=== PATIENT | female | born 1940 | race Caucasian/White ===

== ENCOUNTER → 2018-12-09 | Outpatient (CLI) | payer MEDICARE, BC, OTHER ==
--- NOTE | 2018-12-10 11:25 | RAD ---
Examination: PET/CT skull base to proximal thighs History: Lung mass Comparison/Correlation: None Findings: PET CT exam was performed from skull base to the proximal thighs. 14.24 mCi F-18 FDG was administered intravenously. Serum blood glucose at the time of this exam was 116 mg/dL. Misregistration is noted at the level of the head and maxillofacial structures. Respiratory motion limits evaluation of the lung shea. Uptake involving a left parotid gland lymph node or nodule measuring 0.8 cm is present with SUV max of 3.6. This finding is present medially within the left parotid gland. Within the right parotid gland, there is a lymph node or nodule with SUV max of 3.3. Within the left upper jugular chain, there are lymph nodes which are not enlarged. Mild uptake of radiotracer with SUV max of 3.3 is noted especially on the left at the level 2A region. At the posterior right midthoracic level, there is a focus of uptake with SUV max of 2.5 this corresponds to a curvilinear region of scarring. This curvilinear density is evident as compared to CT chest without contrast 11/04/2018. Nodule involving the lateral left midlung region is similar to previous exam. No abnormal uptake identified although it is probably too small for characterization with measurement of 0.5 cm. Emphysematous involvement of the lung shae noted. Linear scarring or atelectasis at the lung bases noted. Uptake of radiotracer involving the abdomen and pelvis is unremarkable. Liver, spleen, and adrenal glands are unremarkable. Low-attenuation lesion which is too small to characterize involving the left hepatic lobe on axial image 147 probably represents a cyst or other benign process. No abnormal uptake at the site. Multiple renal cysts including some with hemorrhagic component noted. No abnormal uptake of radiotracer. No enlarged abdominal or pelvic lymph nodes. Cholecystectomy noted. Diverticulosis present. Approximately grade 1 anterolisthesis of L5 in relation S1 noted. Compression deformity of the T7 vertebra is present and of indeterminate age. No associated mass or abnormal tracer uptake. Impression: Mild uptake corresponding to the right posterior midthoracic pulmonary groundglass infiltrate which is less evident since the prior CT exam. Mild uptake of radiotracer involving the parotid gland lymph nodes or nodules as well as left level 2A lymph nodes. This is of indeterminate significance. Correlate for underlying inflammatory process. Consider annual follow-up CT of the neck with contrast for more complete resolution to assess interval stability.
== END | disposition home or self-care (01) ==
LOC: PETSC 09:27
PROVIDERS: ATTEND Internal Medicine Critical Care Medicine
DX: R91.8 Other nonspecific abnormal finding of lung field (principal); K57.30 Diverticulosis of large intestine without perforation or abscess without bleeding; J43.9 Emphysema, unspecified; Z90.49 Acquired absence of other specified parts of digestive tract
CPT/HCPCS: 78815; A9552

== ENCOUNTER → 2019-10-28 | Outpatient (CLI) | payer MEDICARE, BC, OTHER ==
--- NOTE | 2019-10-31 18:48 | RAD ---
EXAM: PET W CT SKULL TO MIDTHIGH EXAM DATE: 10/28/2019 INDICATION: Lung mass. Initial staging. RADIOPHARMACEUTICAL: 15.6 mCi of F-18 Fluorodeoxyglucose (FDG) I.V. via the right antecubital fossa. TECHNIQUE: Patient weight: 200 pounds. Following at least four-hour fasting, the patient's blood glucose was 96 mg/dl. Approximately 1 hour after administration of FDG, overlapping emission scanning was performed from the orbital meatal line through the pelvis. A low-dose CT was performed for attenuation correction purposes and anatomic localization. Fused images of PET and CT were reviewed. Any standardized uptake values (SUV) reported are maximum values within a volume region of interest, expressed in gm/ml. COMPARISON: Chest CT without IV contrast of 03/14/2019 and 10/19/2019 FINDINGS: PET: The nodule in the right lower lobe demonstrates abnormal FDG activity to a max SUV of 9.5. There is high background FDG activity including in the mediastinum and right hilum asymmetrically, favored artifactual. For reference, the right hilum shows a max SUV of 3.5. Activity also evident in the skeletal muscles with the patient's upper back CT: Head and neck shows no cervical adenopathy or dominant mass. No intracranial lesions identified. Lungs show centrilobular emphysema. Spiculated right lower lobe pulmonary nodule measures 2.5 cm. There are a few additional subcentimeter satellite nodules surrounding it, at least 3. No mediastinal or hilar hilar adenopathy shown on noncontrast CT. No pleural effusion. Abdomen and pelvis shows multiple hypodense hepatic lesions, incompletely characterized on noncontrast CT but not hypermetabolic, largest measuring 2.2 cm in hepatic segment 8. There are post cholecystectomy surgical changes and multiple bilateral renal cortical cysts, some hemorrhagic. None are hypermetabolic. Bones show chronic T7 compression fracture and generalized osteopenia. No aggressive appearing osseous lesions. IMPRESSION: Right lower lobe 2.5 cm spiculated mass shows abnormal FDG uptake to max SUV of 9.54 and is highly suggestive of a primary lung malignancy. No convincing evidence of advanced local regional spread or distant metastases the high background is evident. Correlation with a contrast enhanced chest CT may be of benefit. Electronically signed by: Clarissa Gutierres MD (10/31/2019 6:45 PM) [id number]
== END | disposition home or self-care (01) ==
LOC: PETSC 09:59
PROVIDERS: ATTEND Internal Medicine Critical Care Medicine
DX: J43.2 Centrilobular emphysema (principal); C34.90 Malignant neoplasm of unspecified part of unspecified bronchus or lung; R91.8 Other nonspecific abnormal finding of lung field; N28.1 Cyst of kidney, acquired; M84.48XA Pathological fracture, other site, initial encounter for fracture; M85.88 Other specified disorders of bone density and structure, other site; Z90.49 Acquired absence of other specified parts of digestive tract
CPT/HCPCS: 78815; A9552

== ENCOUNTER 2020-09-05 18:00 | Inpatient (IN) | payer MEDICARE, BC, OTHER ==
[~2020-09-05] VITALS: Ht 152.4 cm; Wt 81.6 kg
[2020-09-05 19:00] VITALS: BP 120/58
[2020-09-05] MEDS ORDERED: LEVO125T PO (19:11)
[2020-09-05] MEDS ORDERED: ATOR20TA58 PO (19:11)
[2020-09-05] MEDS ORDERED: CARV6.253 PO (19:11)
[2020-09-05] MEDS ORDERED: SPIR25TA5 PO (19:11)
[2020-09-05] MEDS ORDERED: QUET50TA PO (19:11)
[2020-09-05] MEDS ORDERED: BUPR150T11 PO (19:11)
[2020-09-05] MEDS ORDERED: ALPR1TAB6 PO (19:11)
[2020-09-05] MEDS ORDERED: OMEG1CAP66 PO (20:59)
[2020-09-05] MEDS ORDERED: IRBE300T23 PO (20:59)
[2020-09-05] MEDS ORDERED: MULT-245 PO (20:59)
[2020-09-05] MEDS ORDERED: RIVA15TA PO (20:59)
[2020-09-05] MEDS ORDERED: PSYL0.5215 PO (20:59)
[2020-09-05] MEDS ORDERED: ALEN70TA71 PO (20:59)
[2020-09-05] MEDS ORDERED: ESTR42.53 VG (20:59)
[2020-09-05] MEDS ORDERED: NITR50CA11 PO (20:59)
[2020-09-05] MEDS ORDERED: CALC-337 PO (20:59)
[2020-09-05] MEDS ORDERED: ALPRAZolam 1 MG TABLET PO SCH (21:00)
[2020-09-05] MEDS: LACTOBACILLUS RHAMNOSUS GG 1 CAPSULE. PO SCH (22:25)
[2020-09-05] MEDS: ATORVASTATIN CALCIUM 20 MG TABLET PO SCH (22:26)
[2020-09-05] MEDS: QUEtiapine 25 MG TABLET. PO SCH (22:26)
[2020-09-05 23:00] VITALS: BP 112/62
[2020-09-05] MEDS: DEXAMETHASONE SOD PHOS 4 MG/ML VIAL IVP SCH (23:40)
[2020-09-06] MEDS: ANTI-COAG MONITOR BY PHARMACY. MC PRN (00:25)
[2020-09-06] MEDS: ACETAMINOPHEN 325 MG TABLET. PO PRN ×2 (00:47→17:47)
[2020-09-06 03:00] VITALS: BP 134/73
[2020-09-06] MEDS: LEVOTHYROXINE 125 MCG TABLET PO SCH (06:09)
[2020-09-06] MEDS: DEXAMETHASONE SOD PHOS 4 MG/ML VIAL IVP SCH ×3 (06:09→17:46)
[2020-09-06 07:00] VITALS: BP 124/74
--- NOTE | 2020-09-06 08:14 | PDOC1 ---
History and Physical Date of Admission Date of Admission DATE: 09/06/20 TIME: 08:13 Identification/Chief Complaint Chief Complaint COVID 19 pneumonia Source Source: Chart review, Patient History of Present Illness History of Present Illness Ms Hamm is a 79-year-old female w/ PMHx Anxiety, Arthritis, CHF, COPD, High Cholesterol, Hypertension, rheumatic fever transferred from [place] for worsening O2 status under treatment for COVID 19. She initially presented for weakness, fatigue, shortness of breath, and decreased p.o. intake. She has been having diarrhea for about 6 weeks and was hospitalized for the same prior. Patient was also hypoxic on room air satting 84%. Patient has a history of COPD and uses oxygen at night but not during the day. She was started on steroids by her primary care physician and had 1 dose prior to admission. Patient states she has had a productive cough denies any nausea and vomiting. She was exposed to Covid by her daughter who came over for [place]. Her daughter and had a test performed prior to the holiday, got the positive results after being at her mother's for the holiday. She denies any loss of taste or smell but says she lives alone and because she has not felt well is lacking motivation to get out and make food. States there is no blood in her stools no tarry looking stools. Chest radiograph with bilateral pneumonia For her diarrhea [place]' she had a C. difficile and Salmonella Shigella test negative negative for parasites. Her test for COVID-19 on 123 came back positive and she was initiated on remdesivir on 09/04/2020. She also had an ABG at that time and while on a 40% FiO2 pH 74 PaCO2 42 PaO2 71. Repeat chest x-ray on 09/04/2020 showed improvement in her right basilar infiltrate but left inf iltrate as well and emphysema. Labs prior to discharge to [facility] WBC 1.3, Hb 8.6, platelets 231, NA 134, K4.5, BUN 19, CR 1.1, glucose 126, calcium 6.5. EKG was Sinus rhythm, wide complex with left axis deviation, intraventricular block. No ST elevation or depression. Past Medical History Cardiovascular: HTN, Hyperlipidemia Pulmonary: COPD Past Surgical History Past Surgical History: Other (Deviated septum) Family History Family History: High Cholestrol, Hypertension Social History Smoke: No ALCOHOL: none Drugs: None Current Medications Current Medications Current Medications Alprazolam (Xanax) 1 mg TID PO Last administered on 09/05/20at 22:26; Start 09/05/20 at 21:00 Atorvastatin Calcium (Lipitor) 20 mg QHS PO Last administered on 09/05/20at 22:26; Start 09/05/20 at 21:00 Bupropion HCl (Wellbutrin Sr) 300 mg DAILY PO ; Start 09/06/20 at 09:00 Carvedilol (Coreg) 3.125 mg BIDWMEALS PO ; Start 09/06/20 at 08:00 Estradiol (Estrace) 1 angelica QMTH VG ; Start 09/06/20 at 16:00 Levothyroxine Sodium (Synthroid) 125 mcg DAILY06 PO Last administered on 09/06/20at 06:09; Start 09/06/20 at 06:00 Rivaroxaban (Xarelto) 15 mg DAILY PO ; Start 09/06/20 at 09:00 Spironolactone (Aldactone) 12.5 mg DAILY PO ; Start 09/06/20 at 09:00 Non-Formulary Medication (Alendronate Sodium ) 1 tab WEEKLY PO ; Start 09/12/20 at 09:00; Status UNV Calcium/Vitamin D (Oscal D 500mg/ 200uts) 1 tab BIDWMEALS PO ; Start 09/06/20 at 08:00 Losartan Potassium (Cozaar) 100 mg DAILY PO ; Start 09/06/20 at 09:00 Multivitamins (Thera M Plus) 1 tab DAILY PO ; Start 09/06/20 at 09:00 Nitrofurantoin Macrocrystals (Macrobid) 100 mg SuTh PO ; Start 09/06/20 at 09:00 Fish Oil (Fish Oil) 1,000 mg DAILY PO ; Start 09/06/20 at 09:00 Psyllium Hydrophilic Mucilloid (Metamucil Fiber Packet) 1 pkt DAILY PO ; Start 09/06/20 at 09:00 Quetiapine Fumarate (SEROquel) 50 mg QHS PO Last administered on 09/05/20at 22:26; Start 09/05/20 at 21:00 Dexamethasone Sodium Phosphate (Decadron) 4 mg Q6HRS IVP Last administered on 09/06/20at 06:09; Start 09/06/20 at 00:00 Albuterol/ Ipratropium (Combivent Respimat 20-100 Mcg) 1 puff RTQID INH ; Start 09/06/20 at 08:00 Lactobacillus Rhamnosus (Culturelle) 1 cap BID PO Last administered on 09/05/20at 22:25; Start 09/05/20 at 21:30 Loperamide HCl (Imodium) 2 mg PRN Q15MIN PRN PO DIARRHEA; Start 09/05/20 at 21:15 Guaifenesin (Mucinex) 600 mg BID PO Last administered on 09/05/20at 22:26; Start 09/05/20 at 21:30 Info (Anti-Coagulation Monitoring By Pharmacy) 1 each PRN DAILY PRN MC SEE COMMENTS Last administered on 09/06/20at 00:25; Start 09/05/20 at 21:30 Azithromycin 500 mg/Sodium Chloride 250 ml @ 250 mls/hr Q24H IV ; Start 09/06/20 at 13:00 Enoxaparin Sodium (Lovenox 40mg Syringe) 40 mg Q24H SQ ; Start 09/06/20 at 12:00; Status UNV Ceftriaxone Sodium (Rocephin) 1 gm Q24H IVP ; Start 09/06/20 at 12:00 Remdesivir 100 mg/ Sodium Chloride 230 ml @ 460 mls/hr Q24H IV ; Start 09/06/20 at 09:00; Stop 09/08/20 at 09:29 Acetaminophen (Tylenol) 650 mg PRN Q6HRS PRN PO MILD PAIN / TEMP > 100.3'F Last administered on 09/06/20at 00:47; Start 09/06/20 at 00:45 Active Scripts Active Reported Xarelto (Rivaroxaban) 15 Mg Tablet 1 Tab PO DAILY 30 Days Metamucil (Psyllium Husk) 0.52 Gm Capsule 1 Cap PO DAILY [address] 1,000 Mg Softgel ([place]-3S/Dha/Epa/Fish Oil) 1 Each Capsule.dr 1 Cap PO DAILY 30 Days Macrodantin (Nitrofurantoin Macrocrystal) 50 Mg Capsule 1 Cap PO TWICE WEEKLY 30 Days Multi Vitamin Daily (Multivitamin) 1 Each Tablet 1 Tab PO DAILY 30 Days Irbesartan 300 Mg Tablet 300 Mg PO DAILY Estrace (Estradiol) 42.5 Gm Cream.appl 1 Gm VG TWICE WEEKLY Mohan-Citrate Plus Vitamin D Tab (Calcium Citrate/Vitamin D2) 1 Each Tablet 1 Tab PO BID 5 Days Alendronate Sodium 70 Mg Tablet 1 Tab PO WEEKLY Synthroid (Levothyroxine Sodium) 125 Mcg Tablet 125 Mcg PO DAILYAC Quetiapine Fumarate 50 Mg Tablet 50 Mg PO QHS Spironolactone 25 Mg Tablet 12.5 Mg PO DAILY Bupropion Hcl Sr (Bupropion Hcl) 150 Mg Tablet.er 300 Mg PO DAILY Alprazolam 1 Mg Tablet 1 Mg PO TID Carvedilol 6.25 Mg Tablet 3.125 Mg PO BIDWMEALS Atorvastatin Calcium 20 Mg Tablet 20 Mg PO QHS Allergies Allergies: Coded Allergies: amoxicillin (Verified Allergy, Intermediate, 09/05/20) clavulanic acid (Verified Allergy, Intermediate, 09/05/20) fenofibrate (Verified Allergy, Intermediate, 09/05/20) morphine (Verified Allergy, Intermediate, 09/05/20) simvastatin (Verified Allergy, Intermediate, 09/05/20) sulfamethoxazole (Verified Allergy, Intermediate, 09/05/20) trimethoprim (Verified Allergy, Intermediate, 09/05/20) ROS General: YES: Fatigue, Malaise, Appetite; No: Chills, Night Sweats, Other PSYCHOLOGICAL ROS: No: Anxiety, Behavioral Disorder, Concentration difficultie, Decreased libido, Depression, Disorientation, Hallucinations, Hostility, Irritablity, Memory difficulties, Mood Swings, Obsessive thoughts, Physical abuse, Sexual abuse, Sleep disturbances, Suicidal ideation, Other Eyes: No Blurry vision, No Decreased vision, No Double vision, No Dry eyes, No Excessive tearing, No Eye Pain, No Itchy Eyes, No Loss of vision, No P hotophobia, No Scotomata, No Uses contacts, No Uses glasses, No Other HEENT: No: Heacaches, Visual Changes, Hearing change, Nasal congestion, Nasal discharge, Oral lesions, Sinus pain, Sore Throat, Epistaxis, Sneezing, Snoring, Tinnitus, Vertigo, Vocal changes, Other ALLERGY AND IMMUNOLOGY: No: Hives, Insect Bite Sensitivity, Itchy/Watery Eyes, Nasal Congestion, Post Nasal Drip, Seasonal Allergies, Other Hematological and Lymphatic: No: Bleeding Problems, Blood Clots, Blood Transfusions, Brusing, Night Sweats, Pallor, Swollen Lymph Nodes, Other ENDOCRINE: No: Breast Changes, Galactorrhea, Hair Pattern Changes, Hot Flashes, Malaise/lethargy, Mood Swings, Palpitations, Polydipsia/polyuria, Skin Changes, Temperature Intolerance, Unexpected Weight Changes, Other Breast: No New/Changing Breast Lumps, No Nipple changes, No Nipple discharge, No Other Respiratory: YES: Cough, Shortness of breath, SOB with excertion; No: Hemoptysis, Orthopnea, Pleuritic Pain, Sputum Changes, Stridor, Tachypnea, Wheezing, Other Cardiovascular: No Chest Pain, No Palpitations, No Orthopnea, No Paroxysmal Noc. Dyspnea, No Edema, No Lt Headedness, No Other Gastrointestinal: No Nausea, No Vomiting, No Abdominal Pain, No Diarrhea, No Constipation, No Melena, No Hematochezia, No Other Genitourinary: No Dysuria, No Frequency, No Incontinence, No Hematuria, No Retention, No Discharge, No Urgency, No Pain, No Flank Pain, No Other, No , No , No , No , No , No , No Musculoskeletal: No Gait Disturbance, No Joint Pain, No Joint Stiffness, No Joint Swelling, No Muscle Pain, No Muscular Weakness, No Pain In:, No Swelling In:, No Other Neurological: No Behavorial Changes, No Bowel/Bladder ControlChng, No Confusion, No Dizziness, No Gait Disturbance, No Headaches, No Impaired Coord/balance, No Memory Loss, No Numbness/Tingling, No Seizures, No Speech Problems, No Tremors, No Visual Changes, No Weakness, No Other Skin: No Dry Skin, No Eczema, No Hair Changes, No Lumps, No Mole Changes, No Mottling, No Nail Changes, No Pruritus, No Rash, No Skin Lesion Changes, No Other, No Acne Physical Exam General: Alert, Oriented X3, Cooperative, moderate distress HEENT: Atraumatic, PERRLA, EOMI, Mucous membr. moist/pink Lungs: Other (Bilateral rhonchi) Heart: S1S2, RRR, no thrills, no rubs, no gallops, no murmurs Abdomen: Normal bowel sounds, Soft, No tenderness, No hepatosplenomegaly, No masses Rectal Exam: not examined Extremities: No clubbing, No cyanosis, No edema, Normal pulses, No tenderness/swelling Skin: No rashes, No breakdown, No significant lesion Neuro: Normal gait, Normal speech, Strength at 5/5 X4 ext, Normal tone, Sensation intact, Cranial nerves 3-12 NL, Reflexes 2+ Psych/Mental Status: Mental status NL, Mood NL Vitals Vitals Vital Signs Date Time Temp Pulse Resp B/P (MAP) Pulse Ox O2 Delivery O2 Flow Rate FiO2 09/06/20 07:00 96.9 97 18 124/74 (91) 90 Nasal Cannula 10.0 96.9 Images Images Reviewed from [place] in HPI VTE Prophylaxis Ordered VTE Prophylaxis Devices: Yes VTE Pharmacological Prophylaxi: Yes Assessment/Plan Assessment/Plan A/P: Acute hypoxic respiratory failure - due to COVID 19 with secondary bacterial pneumonia as well. Cont antibiotics, steroids, wean O2 as tolerated COVID 19 with pneumonia -continue steroids and remdesivir. Acute hyponatremia - resolving Pneumonia - likely gram negative with structural lung disease. Will cont antibiotics Diarrhea - likely COVID related. infectious w/u negative Sepsis - from COVID 19, will monitor COPD - moderate-severe. Will cont inhalers MDI with steroids, wean O2 as tolerated. FEN - General diet PPX - lovenox DNR/DNI Dispo - inpatient Justifications for Admission Other Justification MARLENE PARADA MD Sep 06, 2020 08:14
[2020-09-06] MEDS: buPROPion SR 150 MG TABLET.SA PO SCH (09:02)
[2020-09-06] MEDS: CALCIUM CARB/VIT D3 500/200 TABLET. PO SCH ×2 (09:02→17:45)
[2020-09-06] MEDS: OMEGA-3 FATTY ACIDS/FISH OIL 1,000 MG CAPSULE. PO SCH (09:02)
[2020-09-06] MEDS: CARVEDILOL 3.125 MG TABLET. PO SCH ×2 (09:02→17:45)
[2020-09-06] MEDS: MULTIVITAMIN with MINERAL TABLET. PO SCH (09:02)
[2020-09-06] MEDS: RIVAROXABAN 15 MG TABLET. PO SCH (09:02)
[2020-09-06] MEDS: NITROFURANTOIN MONOHYD/M-CRYST 100 MG CAPSULE. PO SCH (09:02)
[2020-09-06] MEDS: LOSARTAN POTASSIUM 50 MG TABLET. PO SCH (09:03)
[2020-09-06] MEDS: LACTOBACILLUS RHAMNOSUS GG 1 CAPSULE. PO SCH ×2 (09:03→21:25)
[2020-09-06] MEDS: PSYLLIUM HUSK (SUGAR FREE) 1 PKT PACKET PO SCH (09:04)
[2020-09-06] MEDS: IPRATROPIUM/ALBUTEROL 20/100mcg/INH INHALER. INH SCH ×4 (09:04→20:00)
[2020-09-06] MEDS: SPIRONOLACTONE 25 MG TABLET PO SCH (09:04)
[2020-09-06] MEDS: REMDESIVIR 100mg in NORMAL SALINE 250ML X 4 DAYS IV SCH (09:05)
[2020-09-06] MEDS: LOPERAMIDE 2 MG CAPSULE PO PRN ×3 (09:39→21:37)
[2020-09-06] MEDS: ALPRAZolam 0.5 MG TABLET PO PRN ×3 (09:48→21:24)
[2020-09-06 10:31] VITALS: BP 121/62
[2020-09-06] MEDS ORDERED: ENOXAPARIN 40 MG/0.4 ML SYRINGE. SQ SCH (12:00)
[2020-09-06] MEDS: cefTRIAXone IV Push 1 GM VIAL. IVP SCH (12:52)
[2020-09-06 14:45] VITALS: BP 149/78
[2020-09-06] MEDS: AZITHROMYCIN 500 MG in IV NORMAL SALINE 250ML 250 ML IV SCH (15:03)
[2020-09-06] MEDS: AMINO AC 3%/ELECTROLYTE/GLYCER 1,000 ML IV SCH (15:03)
--- NOTE | 2020-09-06 17:28 | NUR ---
SW following for discharge planning. Spoke with RN and reviewed chart. Pt currently on 10l 02, COVID positive, IV abx. Pt not ready for discharge. SW following.
[2020-09-06] MEDS: ESTRADIOL 0.01% VAGINAL CREAM 42.5GM TUBE. VG SCH (17:46)
[2020-09-06 19:00] VITALS: BP 150/74
[2020-09-06] MEDS: ATORVASTATIN CALCIUM 20 MG TABLET PO SCH (21:25)
[2020-09-06] MEDS: QUEtiapine 25 MG TABLET. PO SCH (21:27)
[2020-09-06 23:00] VITALS: BP 99/53
[2020-09-07] VITALS (7 sets, daily range): BP systolic 124–175; BP diastolic 62–82
[2020-09-07] MEDS: DEXAMETHASONE SOD PHOS 4 MG/ML VIAL IVP SCH ×5 (00:06→23:41)
[2020-09-07] MEDS: LEVOTHYROXINE 125 MCG TABLET PO SCH (06:10)
[2020-09-07] MEDS: AMINO AC 3%/ELECTROLYTE/GLYCER 1,000 ML IV SCH ×2 (06:18→17:02)
[2020-09-07] MEDS: PSYLLIUM HUSK (SUGAR FREE) 1 PKT PACKET PO SCH (09:00)
[2020-09-07] MEDS: OMEGA-3 FATTY ACIDS/FISH OIL 1,000 MG CAPSULE. PO SCH (09:40)
[2020-09-07] MEDS: ACETAMINOPHEN 325 MG TABLET. PO PRN ×2 (09:40→20:33)
[2020-09-07] MEDS: LOSARTAN POTASSIUM 50 MG TABLET. PO SCH (09:41)
[2020-09-07] MEDS: CALCIUM CARB/VIT D3 500/200 TABLET. PO SCH ×2 (09:41→17:01)
[2020-09-07] MEDS: RIVAROXABAN 15 MG TABLET. PO SCH (09:41)
[2020-09-07] MEDS: LACTOBACILLUS RHAMNOSUS GG 1 CAPSULE. PO SCH ×2 (09:41→21:00)
[2020-09-07] MEDS: MULTIVITAMIN with MINERAL TABLET. PO SCH (09:41)
[2020-09-07] MEDS: SPIRONOLACTONE 25 MG TABLET PO SCH (09:41)
[2020-09-07] MEDS: ALPRAZolam 0.5 MG TABLET PO PRN ×3 (09:42→20:32)
[2020-09-07] MEDS: CARVEDILOL 3.125 MG TABLET. PO SCH ×2 (09:42→17:01)
[2020-09-07] MEDS: IPRATROPIUM/ALBUTEROL 20/100mcg/INH INHALER. INH SCH ×4 (09:53→20:00)
[2020-09-07] MEDS: REMDESIVIR 100mg in NORMAL SALINE 250ML X 4 DAYS IV SCH (09:53)
[2020-09-07] MEDS: buPROPion SR 150 MG TABLET.SA PO SCH (10:32)
[2020-09-07] MEDS: cefTRIAXone IV Push 1 GM VIAL. IVP SCH (11:03)
--- NOTE | 2020-09-07 11:15 | PDOC ---
[employer] PROGRESS NOTE Date of Service DOS: DATE: 09/07/20 TIME: 11:14 Chief Complaint Chief Complaint A/P: Acute hypoxic respiratory failure - due to COVID 19 with secondary bacterial pneumonia as well. Cont antibiotics, steroids, wean O2 as tolerated COVID 19 with pneumonia -continue steroids and remdesivir. Acute hyponatremia - resolving Pneumonia - likely gram negative with structural lung disease. Will cont antibiotics Diarrhea - likely COVID related. infectious w/u negative Sepsis - from COVID 19, will monitor COPD - moderate-severe. Will cont inhalers MDI with steroids, wean O2 as tolerated. FEN - General diet PPX - lovenox DNR/DNI Dispo - inpatient History of Present Illness History of Present Illness Ms Hamm is a 79-year-old female w/ PMHx Anxiety, Arthritis, CHF, COPD, High Cholesterol, Hypertension, rheumatic fever transferred from [place] for worsening O2 status under treatment for COVID 19. She initially presented for weakness, fatigue, shortness of breath, and decreased p.o. intake. She has been having diarrhea for about 6 weeks and was hospitalized for the same prior. Patient was also hypoxic on room air satting 84%. Patient has a history of COPD and uses oxygen at night but not during the day. She was started on steroids by her primary care physician and had 1 dose prior to admission. Patient states she has had a productive cough denies any nausea and vomiting. She was exposed to Covid by her daughter who came over for . Her daughter and had a test performed prior to the holiday, got the positive results after being at her mother's for the holiday. She denies any loss of taste or smell but says she lives alone and because she has not felt well is lacking motivation to get out and make food. States there is no blood in her stools no tarry looking stools. Chest radiograph with bilateral pneumonia For her diarrhea [place] she had a C. difficile and Salmonella Shigella test negative negative for parasites. Her test for COVID-19 on 1230 came back positive and she was initiated on remdesivir on 09/04/2020. She also had an ABG at that time and while on a 40% FiO2 pH 74 PaCO2 42 PaO2 71. Repeat chest x-ray on 09/04/2020 showed improvement in her right basilar infiltrate but left infiltrate as well and emphysema. Labs prior to discharge to [facility] WBC 1.3, Hb 8.6, platelets 231, NA 134, K4.5, BUN 19, CR 1.1, glucose 126, calcium 6.5. EKG was Sinus rhythm, wide complex with left axis deviation, intraventricular block. No ST elevation or depression. Afebrile overnight. 10 L nasal cannula O2. She has had difficulty sleeping. Still feeling weak and very little appetite. Still short of breath with cough that is productive today. No chest pain. Vitals/I&O Vitals/I&O: Vital Signs Date Time Temp Pulse Resp B/P (MAP) Pulse Ox O2 Delivery O2 Flow Rate FiO2 09/07/20 09:42 97 151/76 09/07/20 07:00 97.7 26 97 Nasal Cannula 10.0 97.7 I & O 09/06/20 09/06/20 09/07/20 15:00 23:00 07:00 Intake Total 200 ml 0 ml Balance 200 ml 0 ml Physical Exam General: Alert, Oriented X3, Cooperative, moderate distress Abdomen: Normal bowel sounds, Soft, No tenderness, No hepatosplenomegaly, No masses Extremities: No clubbing, No cyanosis, No edema, Normal pulses, No tenderness/swelling Skin: No rashes, No breakdown, No significant lesion Comment Review of Relevant I have reviewed the following items eric (where applicable) has been applied. Medications: Current Medications Medications (Trade) Dose Ordered Sig/Bill Route PRN Reason Start Time Stop Time Status Last Admin Dose Admin Estradiol (Estrace) 1 angelica QMTH VG 09/06/20 16:00 09/06/20 17:46 Azithromycin 500 mg/Sodium Chloride 250 ml @ 250 mls/hr Q24H IV 09/06/20 13:00 09/06/20 15:03 Ceftriaxone Sodium (Rocephin) 1 gm Q24H IVP 09/06/20 12:00 09/07/20 11:03 Amino Acids/ Glycerin/ Electrolytes 1,000 ml @ 80 mls/hr [id number] IV 09/06/20 12:15 09/07/20 06:18 Justifications for Admission Other Justification MARLENE PARADA MD Sep 07, 2020 11:15
[2020-09-07] MEDS: AZITHROMYCIN 500 MG in IV NORMAL SALINE 250ML 250 ML IV SCH (13:07)
--- NOTE | 2020-09-07 17:13 | NUR ---
SW following for discharge planning. Spoke with RN and reviewed chart. Pt remains on PPN and 02. Pt remains on IV Remdesivir, abx and steroids. Pt not ready for discharge Addendum: 09/10/20 at 1159 by VILMA CUNNINGHAM Pt identified as BPCI. No further needs from this SW.
[2020-09-07] MEDS: ATORVASTATIN CALCIUM 20 MG TABLET PO SCH (20:32)
[2020-09-07] MEDS: ZOLPIDEM 5 MG TABLET. PO PRN (20:32)
[2020-09-07] MEDS: QUEtiapine 25 MG TABLET. PO SCH (20:33)
[2020-09-07] MEDS: LOPERAMIDE 2 MG CAPSULE PO PRN (20:33)
[2020-09-08 03:52] VITALS: BP 149/76
[2020-09-08 04:26] LABS: BASO % 0 % (0-3); EOS % 0 % (0-3); HEMATOCRIT 31.4 % (36.0-47.0); HEMOGLOBIN 10.7 g/dL (12.0-15.5); LYMPH # 0.4 x10^3/uL (1.0-4.8); LYMPH % 7 % (24-48); MEAN CORPUSCULAR HEMOGLOBIN 33 pg (25-35); MEAN CORPUSCULAR HGB CONC 34 g/dL (31-37); MEAN CORPUSCULAR VOLUME 96 fL (79-100); MONO # 0.3 x10^3/uL (0.0-1.1); MONO % 6 % (0-9); NEUT # 4.7 x10^3/uL (1.8-7.7); NEUT % 87 % (31-73); PLATELET COUNT 381 x10^3/uL (140-400); RED BLOOD COUNT 3.26 x10^6/uL (3.50-5.40); RED CELL DISTRIBUTION WIDTH 14.4 % (11.5-14.5); WHITE BLOOD COUNT 5.4 x10^3/uL (4.0-11.0)
[2020-09-08 05:32] LABS: ALBUMIN 2.4 g/dL (3.4-5.0); ALBUMIN/GLOBULIN RATIO 0.6 (1.0-1.7); CALCIUM 8.4 mg/dL (8.5-10.1); CREATININE 0.9 mg/dL (0.6-1.0); GFR 60.6; POTASSIUM 4.8 mmol/L (3.5-5.1); TOTAL BILIRUBIN 0.5 mg/dL (0.2-1.0); TOTAL PROTEIN 6.3 g/dL (6.4-8.2)
[2020-09-08] MEDS: LEVOTHYROXINE 125 MCG TABLET PO SCH (05:44)
[2020-09-08] MEDS: DEXAMETHASONE SOD PHOS 4 MG/ML VIAL IVP SCH ×3 (05:44→17:36)
[2020-09-08 07:00] VITALS: BP 133/62
--- NOTE | 2020-09-08 07:39 | PDOC ---
[facility] PROGRESS NOTE Date of Service DOS: DATE: 09/08/20 TIME: 07:39 Chief Complaint Chief Complaint A/P: Acute hypoxic respiratory failure - due to COVID 19 with secondary bacterial pneumonia as well. Cont antibiotics, steroids, wean O2 as tolerated COVID 19 with pneumonia -continue steroids and remdesivir. Acute hyponatremia - resolving Pneumonia - likely gram negative with structural lung disease. Will cont antibiotics Diarrhea - likely COVID related. infectious w/u negative Sepsis - from COVID 19, will monitor COPD - moderate-severe. Will cont inhalers MDI with steroids, wean O2 as tolerated. FEN - General diet PPX - lovenox DNR/DNI Dispo - inpatient History of Present Illness History of Present Illness Ms Hamm is a 79-year-old female w/ PMHx Anxiety, Arthritis, CHF, COPD, High Cholesterol, Hypertension, rheumatic fever transferred from [place] for worsening O2 status under treatment for COVID 19. She initially presented for weakness, fatigue, shortness of breath, and decreased p.o. intake. She has been having diarrhea for about 6 weeks and was hospitalized for the same prior. Patient was also hypoxic on room air satting 84%. Patient has a history of COPD and uses oxygen at night but not during the day. She was started on steroids by her primary care physician and had 1 dose prior to admission. Patient states she has had a productive cough denies any nausea and vomiting. She was exposed to Covid by her daughter who came over for . Her daughter and had a test performed prior to the holiday, got the positive results after being at her mother's for the holiday. She denies any loss of taste or smell but says she lives alone and because she has not felt well is lacking motivation to get out and make food. States there is no blood in her stools no tarry looking stools. Chest radiograph with bilateral pneumonia For her diarrhea Mears's she had a C. difficile and Salmonella Shigella test negative negative for parasites. Her test for COVID-19 on 1230 came back positive and she was initiated on remdesivir on 09/04/2020. She also had an ABG at that time and while on a 40% FiO2 pH 74 PaCO2 42 PaO2 71. Repeat chest x-ray on 09/04/2020 showed improvement in her right basilar infiltrate but left infiltrate as well and emphysema. Labs prior to discharge to [place] WBC 1.3, Hb 8.6, platelets 231, NA 134, K4.5, BUN 19, CR 1.1, glucose 126, calcium 6.5. EKG was Sinus rhythm, wide complex with left axis deviation, intraventricular block. No ST elevation or depression. 09/07: Afebrile overnight. 10 L nasal cannula O2. She has had difficulty sleeping. Still feeling weak and very little appetite. Still short of breath with cough that is productive today. No chest pain.' Afebrile overnight. Out of 8 L nasal cannula O2. Slept a little better but still with difficulty sleeping. Appetite is still low. Still short of breath cough is still productive. No chest pain. No diarrhea. Vitals/I&O Vitals/I&O: Vital Signs Date Time Temp Pulse Resp B/P (MAP) Pulse Ox O2 Delivery O2 Flow Rate FiO2 09/08/20 03:52 97.2 94 20 149/76 (100) 94 Nasal Cannula 10.0 97.2 I & O 0 09/07/20 09/07/20 09/08/20 15:00 23:00 07:00 Intake Total 200 ml 150 ml Balance 200 ml 150 ml Physical Exam General: Alert, Oriented X3, Cooperative, moderate distress Abdomen: Normal bowel sounds, Soft, No tenderness, No hepatosplenomegaly, No masses Extremities: No clubbing, No cyanosis, No edema, Normal pulses, No tenderness/swelling Skin: No rashes, No breakdown, No significant lesion Labs Labs: Laboratory Tests Test 09/08/20 03:30 White Blood Count 5.4 x10^3/uL (4.0-11.0) Red Blood Count 3.26 x10^6/uL (3.50-5.40) Hemoglobin 10.7 g/dL (12.0-15.5) Hematocrit 31.4 % (36.0-47.0) Mean Corpuscular Volume 96 fL (79-100) Mean Corpuscular Hemoglobin 33 pg (25-35) Mean Corpuscular Hemoglobin Concent 34 g/dL (31-37) Red Cell Distribution Width 14.4 % (11.5-14.5) Platelet Count 381 x10^3/uL (140-400) Neutrophils (%) (Auto) 87 % (31-73) Lymphocytes (%) (Auto) 7 % (24-48) Monocytes (%) (Auto) 6 % (0-9) Eosinophils (%) (Auto) 0 % (0-3) Basophils (%) (Auto) 0 % (0-3) Neutrophils # (Auto) 4.7 x10^3/uL (1.8-7.7) Lymphocytes # (Auto) 0.4 x10^3/uL (1.0-4.8) Monocytes # (Auto) 0.3 x10^3/uL (0.0-1.1) Eosinophils # (Auto) 0.0 x10^3/uL (0.0-0.7) Basophils # (Auto) 0.0 x10^3/uL (0.0-0.2) D-Dimer (Denise) 0.86 ug/mlFEU (0.00-0.50) Sodium Level 137 mmol/L (136-145) Potassium Level 4.8 mmol/L (3.5-5.1) Chloride Level 100 mmol/L (98-107) Carbon Dioxide Level 29 mmol/L (21-32) Anion Gap 8 (6-14) Blood Urea Nitrogen 26 mg/dL (7-20) Creatinine 0.9 mg/dL (0.6-1.0) Estimated GFR (Cockcroft-Gault) 60.6 BUN/Creatinine Ratio 29 (6-20) Glucose Level 124 mg/dL (70-99) Calcium Level 8.4 mg/dL (8.5-10.1) Total Bilirubin 0.5 mg/dL (0.2-1.0) Aspartate Amino Transf (AST/SGOT) 26 U/L (15-37) Alanine Aminotransferase (ALT/SGPT) 32 U/L (14-59) Alkaline Phosphatase 66 U/L (46-116) Total Protein 6.3 g/dL (6.4-8.2) Albumin 2.4 g/dL (3.4-5.0) Albumin/Globulin Ratio 0.6 (1.0-1.7) Comment Review of Relevant I have reviewed the following items eric (where applicable) has been applied. Medications: Current Medications Medications (Trade) Dose Ordered Sig/Bill Route PRN Reason Start Time Stop Time Status Last Admin Dose Admin Zolpidem Tartrate (Ambien) 5 mg PRN QHS PRN PO INSOMNIA 09/07/20 21:00 09/07/20 20:32 Justifications for Admission Other Justification MARLENE PARADA MD Sep 08, 2020 07:39
[2020-09-08] MEDS: IPRATROPIUM/ALBUTEROL 20/100mcg/INH INHALER. INH SCH ×4 (07:55→20:00)
[2020-09-08] MEDS: CALCIUM CARB/VIT D3 500/200 TABLET. PO SCH ×2 (07:55→17:36)
[2020-09-08] MEDS: CARVEDILOL 3.125 MG TABLET. PO SCH ×2 (07:56→17:36)
[2020-09-08] MEDS: AMINO AC 3%/ELECTROLYTE/GLYCER 1,000 ML IV SCH ×2 (08:06→13:56)
[2020-09-08] MEDS: buPROPion SR 150 MG TABLET.SA PO SCH (08:47)
[2020-09-08] MEDS: ALPRAZolam 0.5 MG TABLET PO PRN ×2 (08:47→17:46)
[2020-09-08] MEDS: LACTOBACILLUS RHAMNOSUS GG 1 CAPSULE. PO SCH ×2 (08:47→20:22)
[2020-09-08] MEDS: RIVAROXABAN 15 MG TABLET. PO SCH (08:47)
[2020-09-08] MEDS: MULTIVITAMIN with MINERAL TABLET. PO SCH (08:47)
[2020-09-08] MEDS: SPIRONOLACTONE 25 MG TABLET PO SCH (08:47)
[2020-09-08] MEDS: OMEGA-3 FATTY ACIDS/FISH OIL 1,000 MG CAPSULE. PO SCH (08:47)
[2020-09-08] MEDS: LOSARTAN POTASSIUM 50 MG TABLET. PO SCH (08:48)
[2020-09-08] MEDS: PSYLLIUM HUSK (SUGAR FREE) 1 PKT PACKET PO SCH (08:48)
[2020-09-08] MEDS: REMDESIVIR 100mg in NORMAL SALINE 250ML X 4 DAYS IV SCH (09:55)
[2020-09-08 11:00] VITALS: BP 111/74
[2020-09-08] MEDS: cefTRIAXone IV Push 1 GM VIAL. IVP SCH (11:44)
[2020-09-08] MEDS: ANTI-COAG MONITOR BY PHARMACY. MC PRN (12:44)
[2020-09-08] MEDS: AZITHROMYCIN 500 MG in IV NORMAL SALINE 250ML 250 ML IV SCH (12:55)
--- NOTE | 2020-09-08 13:56 | NUR ---
Procalamine nonadministered by this RN, previous container of fluids still infusing. Refer to EMAR for details.
[2020-09-08 14:17] LABS: % BANDS 2 % (0-9); % LYMPHS 8 % (24-48); % MONOS 5 % (0-10); % SEGS 85 % (35-66); PLT ESTIMATE ADEQUATE (ADEQUATE); POIKILOCYTOSIS PRESENT
[2020-09-08 15:00] VITALS: BP 127/76
[2020-09-08] MEDS: LOPERAMIDE 2 MG CAPSULE PO PRN ×2 (17:37→20:21)
[2020-09-08 19:00] VITALS: BP 118/72
[2020-09-08] MEDS: ATORVASTATIN CALCIUM 20 MG TABLET PO SCH (20:21)
[2020-09-08] MEDS: MIRTAZAPINE 15 MG TABLET PO SCH (20:21)
[2020-09-08] MEDS: QUEtiapine 25 MG TABLET. PO SCH (20:22)
[2020-09-09] MEDS: DEXAMETHASONE SOD PHOS 4 MG/ML VIAL IVP SCH ×3 (00:13→11:33)
[2020-09-09] MEDS: AMINO AC 3%/ELECTROLYTE/GLYCER 1,000 ML IV SCH (00:14)
[2020-09-09 03:00] VITALS: BP 143/62
[2020-09-09] MEDS: LEVOTHYROXINE 125 MCG TABLET PO SCH (06:15)
[2020-09-09 07:00] VITALS: BP 146/65
[2020-09-09] MEDS: CALCIUM CARB/VIT D3 500/200 TABLET. PO SCH ×2 (07:57→17:02)
[2020-09-09] MEDS: IPRATROPIUM/ALBUTEROL 20/100mcg/INH INHALER. INH SCH ×4 (07:57→20:29)
[2020-09-09] MEDS: CARVEDILOL 3.125 MG TABLET. PO SCH ×2 (07:58→17:08)
[2020-09-09] MEDS: ALPRAZolam 0.5 MG TABLET PO PRN ×2 (07:58→15:05)
[2020-09-09] MEDS: PSYLLIUM HUSK (SUGAR FREE) 1 PKT PACKET PO SCH (09:00)
[2020-09-09] MEDS: MULTIVITAMIN with MINERAL TABLET. PO SCH (09:03)
[2020-09-09] MEDS: LACTOBACILLUS RHAMNOSUS GG 1 CAPSULE. PO SCH ×2 (09:03→20:27)
[2020-09-09] MEDS: RIVAROXABAN 15 MG TABLET. PO SCH (09:03)
[2020-09-09] MEDS: OMEGA-3 FATTY ACIDS/FISH OIL 1,000 MG CAPSULE. PO SCH (09:03)
[2020-09-09] MEDS: buPROPion SR 150 MG TABLET.SA PO SCH (09:03)
[2020-09-09] MEDS: NITROFURANTOIN MONOHYD/M-CRYST 100 MG CAPSULE. PO SCH (09:03)
[2020-09-09] MEDS: SPIRONOLACTONE 25 MG TABLET PO SCH (09:04)
[2020-09-09] MEDS: LOSARTAN POTASSIUM 50 MG TABLET. PO SCH (09:04)
--- NOTE | 2020-09-09 09:29 | PDOC ---
[facility] PROGRESS NOTE Date of Service DOS: DATE: 09/09/20 TIME: 09:29 Chief Complaint Chief Complaint A/P: Acute hypoxic respiratory failure - due to COVID 19 with secondary bacterial pneumonia as well. Cont antibiotics, steroids, wean O2 as tolerated COVID 19 with pneumonia -continue steroids and remdesivir. Acute hyponatremia - resolving Pneumonia - likely gram negative with structural lung disease. Will cont antibiotics Diarrhea - likely COVID related. infectious w/u negative Sepsis - from COVID 19, will monitor COPD - moderate-severe. Will cont inhalers MDI with steroids, wean O2 as tolerated. FEN - General diet PPX - lovenox DNR/DNI Dispo - inpatient History of Present Illness History of Present Illness Ms Hamm is a 79-year-old female w/ PMHx Anxiety, Arthritis, CHF, COPD, High Cholesterol, Hypertension, rheumatic fever, and GLORY on 2L NCO2 nightly who was transferred from [place] for worsening O2 status under treatment for COVID 19. She initially presented for weakness, fatigue, shortness of breath, and decre ased p.o. intake. She has been having diarrhea for about 6 weeks and was hospitalized for the same prior. Patient was also hypoxic on room air satting 84%. Patient has a history of COPD and uses oxygen at night but not during the day. She was started on steroids by her primary care physician and had 1 dose prior to admission. Patient states she has had a productive cough denies any nausea and vomiting. She was exposed to Covid by her daughter who came over for Janny. Her daughter and had a test performed prior to the holiday, got the positive results after being at her mother's for the holiday. She denies any loss of taste or smell but says she lives alone and because she has not felt well is lacking motivation to get out and make food. States there is no blood in her stools no tarry looking stools. Chest radiograph with bilateral pneumonia For her diarrhea Michell's she had a C. difficile and Salmonella Shigella test negative negative for parasites. Her test for COVID-19 on 1230 came back posit natalya and she was initiated on remdesivir on 09/04/2020. She also had an ABG at that time and while on a 40% FiO2 pH 74 PaCO2 42 PaO2 71. Repeat chest x-ray on 09/04/2020 showed improvement in her right basilar infiltrate but left infiltrate as well and emphysema. Labs prior to discharge to [place] WBC 1.3, Hb 8.6, platelets 231, NA 134, K4.5, BUN 19, CR 1.1, glucose 126, calcium 6.5. EKG was Sinus rhythm, wide complex with left axis deviation, intraventricular block. No ST elevation or depression. 09/07: Afebrile overnight. 10 L nasal cannula O2. She has had difficulty sleeping. Still feeling weak and very little appetite. Still short of breath with cough that is productive today. No chest pain.' 09/08: Afebrile overnight. Out of 8 L nasal cannula O2. Slept a little better but still with difficulty sleeping. Appetite is still low. Still short of breath cough is still productive. No chest pain. No diarrhea. Afebrile. On 6 liters nasal cannula O2. Slept significantly better and appetite is increased. Of breath with cough. Still feeling very weak. No chest pain no diarrhea. Plan: 6 min walk to modify her home O2 F/u therapy recs home health vs SNF D/c in next 24-48 hours Vitals/I&O Vitals/I&O: Vital Signs Date Time Temp Pulse Resp B/P (MAP) Pulse Ox O2 Delivery O2 Flow Rate FiO2 09/09/20 09:04 108 125/74 09/09/20 08:05 Nasal Cannula 8.0 09/09/20 07:00 96.9 23 97 96.9 I & O 09/08/20 09/08/20 09/09/20 15:00 23:00 07:00 Intake Total 1230 ml Output Total 1 ml 400 ml 200 ml Balance 1229 ml -400 ml -200 ml Physical Exam General: Alert, Oriented X3, Cooperative, moderate distress Abdomen: Normal bowel sounds, Soft, No tenderness, No hepatosplenomegaly, No masses Extremities: No clubbing, No cyanosis, No edema, Normal pulses, No tenderness/swelling Skin: No rashes, No breakdown, No significant lesion Comment Review of Relevant I have reviewed the following items eric (where applicable) has been applied. Medications: Current Medications Medications (Trade) Dose Ordered Sig/Bill Route PRN Reason Start Time Stop Time Status Last Admin Dose Admin Mirtazapine (Remeron) 15 mg QHS PO 09/08/20 21:00 09/08/20 20:21 Justifications for Admission Other Justification MARLENE PARADA MD Sep 09, 2020 09:29
[2020-09-09 11:00] VITALS: BP 115/67
[2020-09-09] MEDS: cefTRIAXone IV Push 1 GM VIAL. IVP SCH (11:34)
[2020-09-09] MEDS: ANTI-COAG MONITOR BY PHARMACY. MC PRN (11:36)
[2020-09-09] MEDS: AZITHROMYCIN 500 MG in IV NORMAL SALINE 250ML 250 ML IV SCH (12:37)
[2020-09-09 15:00] VITALS: BP_SYST 127; BP_DIAS 64; BP_DIAS 77
[2020-09-09 19:00] VITALS: BP 131/73
[2020-09-09] MEDS: ATORVASTATIN CALCIUM 20 MG TABLET PO SCH (20:27)
[2020-09-09] MEDS: QUEtiapine 25 MG TABLET. PO SCH (20:27)
[2020-09-09] MEDS: DOXYCYCLINE HYCLATE 100 MG TABLET PO SCH (20:27)
[2020-09-09] MEDS: MIRTAZAPINE 15 MG TABLET PO SCH (20:27)
[2020-09-09] MEDS: ZOLPIDEM 5 MG TABLET. PO PRN (20:36)
[2020-09-09 23:38] VITALS: BP 102/63
[2020-09-10 03:27] VITALS: BP 99/57
[2020-09-10] MEDS: LEVOTHYROXINE 125 MCG TABLET PO SCH (05:59)
[2020-09-10 07:00] VITALS: BP 119/69
--- NOTE | 2020-09-10 08:33 | PDOC ---
PROGRESS NOTES Date of Service: DATE: 09/10/20 TIME: 08:32 Chief Complaint Chief Complaint A/P: Acute hypoxic respiratory failure - due to COVID 19 with secondary bacterial pneumonia as well. Cont antibiotics, steroids, wean O2 as tolerated COVID 19 with pneumonia -continue steroids and remdesivir. Acute hyponatremia - resolving Pneumonia - likely gram negative with structural lung disease. Will cont antibiotics Diarrhea - likely COVID related. infectious w/u negative Sepsis - from COVID 19, will monitor COPD - moderate-severe. Will cont inhalers MDI with steroids, wean O2 as tolerated. FEN - General diet PPX - lovenox DNR/DNI Dispo - inpatient History of Present Illness History of Present Illness Ms Hamm is a 79-year-old female w/ PMHx Anxiety, Arthritis, CHF, COPD, High Cholesterol, Hypertension, rheumatic fever, and GLORY on 2L NCO2 nightly who was transferred from [place] for worsening O2 status under treatment for COVID 19. She initially presented for weakness, fatigue, shortness of breath, and decreased p.o. intake. She has been having diarrhea for about 6 weeks and was hospitalized for the same prior. Patient was also hypoxic on room air satting 84%. Patient has a history of COPD and uses oxygen at night but not during the day. She was started on steroids by her primary care physician and had 1 dose prior to admission. Patient states she has had a productive cough denies any nausea and vomiting. She was exposed to Covid by her daughter who came over for Janny. Her daughter and had a test performed prior to the holiday, got the positive results after being at her mother's for the holiday. She denies any loss of taste or smell but says she lives alone and because she has not felt well is lacking motivation to get out and make food. States there is no blood in her stools no tarry looking stools. Chest radiograph with bilateral pneumonia For her diarrhea Michell's she had a C. difficile and Salmonella Shigella test negative negative for parasites. Her test for COVID-19 on 1230 came back positive and she was initiated on remdesivir on 09/04/2020. She also had an ABG at that time and while on a 40% FiO2 pH 74 PaCO2 42 PaO2 71. Repeat chest x-ray on 09/04/2020 showed improvement in her right basilar infiltrate but left infiltrate as well and emphysema. Labs prior to discharge to [place] WBC 1.3, Hb 8.6, platelets 231, NA 134, K4.5, BUN 19, CR 1.1, glucose 126, calcium 6.5. EKG was Sinus rhythm, wide complex with left axis deviation, intraventricular block. No ST elevation or depression. 09/07: Afebrile overnight. 10 L nasal cannula O2. She has had difficulty sleeping. Still feeling weak and very little appetite. Still short of breath with cough that is productive today. No chest pain.' 09/08: Afebrile overnight. Out of 8 L nasal cannula O2. Slept a little better but still with difficulty sleeping. Appetite is still low. Still short of breath cough is still productive. No chest pain. No diarrhea. Afebrile. On 6 liters nasal cannula O2. Slept significantly better and appetite is increased. Of breath with cough. Still feeling very weak. No chest pain no diarrhea. Plan: 6 min walk to modify her home O2 F/u therapy recs home health vs SNF D/c in next 24-48 hours Vitals Vitals Vital Signs Date Time Temp Pulse Resp B/P (MAP) Pulse Ox O2 Delivery O2 Flow Rate FiO2 09/10/20 07:00 97.5 112 44 119/69 (86) 94 Nasal Cannula 6.0 97.5 Physical Exam General: Alert, Oriented X3, Cooperative, moderate distress Abdomen: Normal bowel sounds, Soft, No tenderness, No hepatosplenomegaly, No masses Extremities: No clubbing, No cyanosis, No edema, Normal pulses, No tenderness/swelling Skin: No rashes, No breakdown, No significant lesion Assessment and Plan Assessmemt and Plan DPOA REVIEW 18 MIN to patient portal What Is a Power of Supply And Distribution Manager? A power of commonwealth attorney (POA) is a legal document giving one person (the agent or [id number]) the power to act for another person (the principal). The agent can have broad legal authority or limited authority to make legal decisions about the principal's property, finances or medical care. The power of commonwealth attorney is frequently used in the event of a principal's illness or disability, or when the principal can't be present to sign necessary legal documents for financial transactions. A power of commonwealth attorney can end for a number of reasons, such as when the principal dies, the principal revokes it, a court invalidates it, the principal divorces their spouse, who happens to be the agent, or the agent can no longer carry out the outlined responsibilities. Conventional POAs lapse when the creator becomes incapacitated, but a durable POA remains in force to enable the agent to manage the creators affairs, and a springing POA comes into effect only if and when the creator of the POA becomes incapacitated. A medical or healthcare POA enables an agent to make medical decisions on behalf of an incapacitated person. Graham Takeaways A power of commonwealth attorney (POA) is a legal document giving one person, the agent or [id number] the power to act for another person, the principal. The agent can have broad legal authority or limited authority to make decisions about the principal's property, finances or medical care. The power of commonwealth attorney is often used when a principal becomes ill or disabled, or when they can't be present to sign necessary legal documents for financial transactions. Understanding Power of Supply And Distribution Manager A power of commonwealth attorney should be considered when planning for long-term care. There are different types of POAs that fall under either a general power of commonwealth attorney or limited power of commonwealth attorney. A general power of commonwealth attorney acts on behalf of the principal in any and all matters, as allowed by the state. The agent under a general POA agreement may be authorized to take care of issues such as handling bank accounts, signing nick cks, selling property and assets like stocks, f A limited power of commonwealth attorney gives the agent the power to act on behalf of the p rincipal in specific matters or events. For example, the limited POA may explicitly state that the agent is only allowed to manage the principal's alf accounts. A limited POA may also be limited to a specific period of time (e.g., if the principal will be out of the country for, say, two years). Most fuentes of commonwealth attorney documents allow an agent to represent the principal in all property and financial matters as long as the principals mental state of mind is good. If a situation occurs where the principal becomes incapable of making decisions for him or herself, the POA agreement would automatically end. However, someone who wants the POA to remain in effect after the persons health deteriorates would need to sign a durable power of commonwealth attorney (DPOA). What is an advance directive? An advance directive is a legal document that says how you want to be cared for if you are unable to make decisions. You can include what medical treatments you would want and who you would trust to make decisions for you. An advance directive can also include other legal documents. A living will is a list of treatment preferences. It can be used to indicate whether you would want cardiopulmonary resuscitation (CPR), tube feedings, a breathing machine, or certain medicines, like antibiotics. The durable power of commonwealth attorney for health care document identifies the person you would want to make medical decisions for you. This person is also called a proxy. Your proxy should be familiar with your values and wishes. How do I get started? You can get advance directive documents for your state from your doctor's office or from http://www.caringinfo.org. Review the forms, and ask your doctor if you have any questions. Pick a person to be your proxy, and talk it over with that person. Comment Review of Relevant I have reviewed the following items eric (where applicable) has been applied. Medications Current Medications Alprazolam (Xanax) 1 mg TID PO Last administered on 09/05/20at 22:26; Start 09/05/20 at 21:00; Stop 09/06/20 at 08:14; Status DC Atorvastatin Calcium (Lipitor) 20 mg QHS PO Last administered on 09/09/20at 20:27; Start 09/05/20 at 21:00 Bupropion HCl (Wellbutrin Sr) 300 mg DAILY PO Last administered on 09/09/20at 09:03; Start 09/06/20 at 09:00 Carvedilol (Coreg) 3.125 mg BIDWMEALS PO Last administered on 09/09/20at 17:08; Start 09/06/20 at 08:00 Estradiol (Estrace) 1 angelica QMTH VG Last administered on 09/06/20at 17:46; Start 09/06/20 at 16:00 Levothyroxine Sodium (Synthroid) 125 mcg DAILY06 PO Last administered on 09/10/20 05:59; Start 09/06/20 at 06:00 Rivaroxaban (Xarelto) 15 mg DAILY PO Last administered on 09/09/20 09:03; Start 09/06/20 at 09:00 Spironolactone (Aldactone) 12.5 mg DAILY PO Last administered on 09/09/20 09:04; Start 09/06/20 at 09:00 Non-Formulary Medication (Alendronate Sodium ) 1 tab WEEKLY PO ; Start 09/12/20 at 09:00; Status UNV Calcium/Vitamin D (Oscal D 500mg/ 200uts) 1 tab BIDWMEALS PO Last administered on 09/09/20 17:02; Start 09/06/20 at 08:00 Losartan Potassium (Cozaar) 100 mg DAILY PO Last administered on 09/09/20 09:04; Start 09/06/20 at 09:00 Multivitamins (Thera M Plus) 1 tab DAILY PO Last administered on 09/09/20 09:03; Start 09/06/20 at 09:00 Nitrofurantoin Macrocrystals (Macrobid) 100 mg SuTh PO Last administered on 09/09/20 09:03; Start 09/06/20 at 09:00 Fish Oil (Fish Oil) 1,000 mg DAILY PO Last administered on 09/09/20 09:03; Start 09/06/20 at 09:00 Psyllium Hydrophilic Mucilloid (Metamucil Fiber Packet) 1 pkt DAILY PO Last administered on 09/06/20 09:04; Start 09/06/20 at 09:00 Quetiapine Fumarate (SEROquel) 50 mg QHS PO Last administered on 09/09/20 20:27; Start 09/05/20 at 21:00 Dexamethasone Sodium Phosphate (Decadron) 4 mg Q6HRS IVP Last administered on 11:33; Start 09/06/20 at 00:00; Stop 09/09/20 at 13:30; Status DC Albuterol/ Ipratropium (Combivent Respimat 20-100 Mcg) 1 puff RTQID INH Last administered on 09/09/20 20:29; Start 09/06/20 at 08:00 Lactobacillus Rhamnosus (Culturelle) 1 cap BID PO Last administered on 09/09/20at 20:27; Start 09/05/20 at 21:30 Loperamide HCl (Imodium) 2 mg PRN Q15MIN PRN PO DIARRHEA Last administered on 09/08/20at 20:21; Start 09/05/20 at 21:15 Guaifenesin (Mucinex) 600 mg BID PO Last administered on 09/09/20at 20:27; Start 09/05/20 at 21:30 Info (Anti-Coagulation Monitoring By Pharmacy) 1 each PRN DAILY PRN MC SEE COMMENTS Last administered on 09/09/20at 11:36; Start 09/05/20 at 21:30 Azithromycin 500 mg/Sodium Chloride 250 ml @ 250 mls/hr Q24H IV Last administered on 09/09/20at 12:37; Start 09/06/20 at 13:00; Stop 09/09/20 at 13:30; Status DC Enoxaparin Sodium (Lovenox 40mg Syringe) 40 mg Q24H SQ ; Start 09/06/20 at 12:00; Status UNV Ceftriaxone Sodium (Rocephin) 1 gm Q24H IVP Last administered on 09/09/20at 11:34; Start 09/06/20 at 12:00; Stop 09/09/20 at 13:30; Status DC Remdesivir 100 mg/ Sodium Chloride 230 ml @ 460 mls/hr Q24H IV Last a dministered on 09/08/20at 09:55; Start 09/06/20 at 09:00; Stop 09/08/20 at 09:29; Status DC Acetaminophen (Tylenol) 650 mg PRN Q6HRS PRN PO MILD PAIN / TEMP > 100.3'F Last administered on 09/07/20at 20:33; Start 09/06/20 at 00:45 Alprazolam (Xanax) 0.5 mg PRN TID PRN PO anxiety Last administered on 09/09/20at 15:05; Start 09/06/20 at 08:30 Amino Acids/ Glycerin/ Electrolytes 1,000 ml @ 80 mls/hr [id number] IV Last administered on 09/09/20at 00:14; Start 09/06/20 at 12:15; Stop 09/09/20 at 13:30; Status DC Zolpidem Tartrate (Ambien) 5 mg PRN QHS PRN PO INSOMNIA Last administered on 09/09/20at 20:36; Start 09/07/20 at 21:00 Mirtazapine (Remeron) 15 mg QHS PO Last administered on 09/09/20at 20:27; Start 09/08/20 at 21:00 Dexamethasone (Decadron) 4 mg DAILYWBKFT PO ; Start 09/10/20 at 08:00; Stop 09/20/20 at 07:59 Doxycycline Hyclate (Vibra-Tab) 100 mg BID PO Last administered on 09/09/20at 20:27; Start 09/09/20 at 21:00; Stop 09/14/20 at 21:01 Active Scripts Active Reported Xarelto (Rivaroxaban) 15 Mg Tablet 1 Tab PO DAILY 30 Days Metamucil (Psyllium Husk) 0.52 Gm Capsule 1 Cap PO DAILY [address] 1,000 Mg Softgel ([place]-3S/Dha/Epa/Fish Oil) 1 Each Capsule.dr 1 Cap PO DAILY 30 Days Macrodantin (Nitrofurantoin Macrocrystal) 50 Mg Capsule 1 Cap PO TWICE WEEKLY 30 Days Multi Vitamin Daily (Multivitamin) 1 Each Tablet 1 Tab PO DAILY 30 Days Irbesartan 300 Mg Tablet 300 Mg PO DAILY Estrace (Estradiol) 42.5 Gm Cream.appl 1 Gm VG TWICE WEEKLY Mohan-Citrate Plus Vitamin D Tab (Calcium Citrate/Vitamin D2) 1 Each Tablet 1 Tab PO BID 5 Days Alendronate Sodium 70 Mg Tablet 1 Tab PO WEEKLY Synthroid (Levothyroxine Sodium) 125 Mcg Tablet 125 Mcg PO DAILYAC Quetiapine Fumarate 50 Mg Tablet 50 Mg PO QHS Spironolactone 25 Mg Tablet 12.5 Mg PO DAILY Bupropion Hcl Sr (Bupropion Hcl) 150 Mg Tablet.er 300 Mg PO DAILY Alprazolam 1 Mg Tablet 1 Mg PO TID Carvedilol 6.25 Mg Tablet 3.125 Mg PO BIDWMEALS Atorvastatin Calcium 20 Mg Tablet 20 Mg PO QHS Vitals/I & O Vital Sign - Last 24 Hours 09/09/20 09/09/20 09/09/20 09/09/20 09:04 11:00 15:00 17:08 Temp 98.3 96.6 98.3 96.6 Pulse 108 98 98 98 Resp 26 23 B/P (MAP) 125/74 115/67 (83) 127/77 (94) 127/77 Pulse Ox 98 90 O2 Delivery Nasal Cannula Nasal Cannula O2 Flow Rate 9.0 9.0 09/09/20 09/09/20 09/09/20 09/10/20 19:00 19:30 23:38 03:27 Temp 97.1 96.5 97.0 97.1 96.5 97.0 Pulse 97 102 103 Resp 28 26 32 B/P (MAP) 131/73 (92) 102/63 (76) 99/57 (71) Pulse Ox 95 98 96 O2 Delivery Nasal Cannula Nasal Cannula Nasal Cannula Nasal Cannula O2 Flow Rate 6.0 6.0 6.0 6.0 09/10/20 07:00 Temp 97.5 97.5 Pulse 112 Resp 44 B/P (MAP) 119/69 (86) Pulse Ox 94 O2 Delivery Nasal Cannula O2 Flow Rate 6.0 Intake and Output 09/09/20 09/09/20 09/10/20 15:00 23:00 07:00 Intake Total 250 ml 950 ml 0 ml Balance 250 ml 950 ml 0 ml Justicifation of Admission Dx: Justifications for Admission: Justification of Admission Dx: Yes Comminuty Aquired Pneumonia: Hypoxemia LOUIE OH MD Sep 10, 2020 08:33
[2020-09-10] MEDS: RIVAROXABAN 15 MG TABLET. PO SCH (08:45)
[2020-09-10] MEDS: PSYLLIUM HUSK (SUGAR FREE) 1 PKT PACKET PO SCH (08:45)
[2020-09-10] MEDS: ALPRAZolam 0.5 MG TABLET PO PRN ×3 (08:45→20:28)
[2020-09-10] MEDS: LACTOBACILLUS RHAMNOSUS GG 1 CAPSULE. PO SCH ×2 (08:45→20:28)
[2020-09-10] MEDS: LOSARTAN POTASSIUM 50 MG TABLET. PO SCH (08:45)
[2020-09-10] MEDS: CALCIUM CARB/VIT D3 500/200 TABLET. PO SCH ×2 (08:45→16:41)
[2020-09-10] MEDS: OMEGA-3 FATTY ACIDS/FISH OIL 1,000 MG CAPSULE. PO SCH (08:45)
[2020-09-10] MEDS: CARVEDILOL 3.125 MG TABLET. PO SCH ×2 (08:46→16:42)
[2020-09-10] MEDS: DOXYCYCLINE HYCLATE 100 MG TABLET PO SCH ×2 (08:46→20:28)
[2020-09-10] MEDS: DEXAMETHASONE 4 MG TABLET PO SCH (08:46)
[2020-09-10] MEDS: MULTIVITAMIN with MINERAL TABLET. PO SCH (08:46)
[2020-09-10] MEDS: buPROPion SR 150 MG TABLET.SA PO SCH (08:46)
[2020-09-10] MEDS: SPIRONOLACTONE 25 MG TABLET PO SCH (08:47)
[2020-09-10] MEDS: IPRATROPIUM/ALBUTEROL 20/100mcg/INH INHALER. INH SCH ×4 (08:52→20:27)
[2020-09-10 10:47] LABS: BASO % 0 % (0-3); EOS % 0 % (0-3); HEMATOCRIT 36.1 % (36.0-47.0); HEMOGLOBIN 11.9 g/dL (12.0-15.5); LYMPH # 0.9 x10^3/uL (1.0-4.8); LYMPH % 7 % (24-48); MEAN CORPUSCULAR HEMOGLOBIN 32 pg (25-35); MEAN CORPUSCULAR HGB CONC 33 g/dL (31-37); MEAN CORPUSCULAR VOLUME 97 fL (79-100); MONO # 0.5 x10^3/uL (0.0-1.1); MONO % 4 % (0-9); NEUT % 89 % (31-73); PLATELET COUNT 528 x10^3/uL (140-400); RED BLOOD COUNT 3.73 x10^6/uL (3.50-5.40); RED CELL DISTRIBUTION WIDTH 14.4 % (11.5-14.5); WHITE BLOOD COUNT 12.4 x10^3/uL (4.0-11.0)
[2020-09-10 11:00] VITALS: BP 102/58
[2020-09-10 11:07] LABS: ALBUMIN 2.8 g/dL (3.4-5.0); ALBUMIN/GLOBULIN RATIO 0.7 (1.0-1.7); CALCIUM 9.5 mg/dL (8.5-10.1); CREATININE 1.5 mg/dL (0.6-1.0); GFR 33.6; POTASSIUM 4.8 mmol/L (3.5-5.1); TOTAL BILIRUBIN 0.6 mg/dL (0.2-1.0); TOTAL PROTEIN 6.7 g/dL (6.4-8.2)
[2020-09-10] MEDS: NYSTATIN 100,000 UNITS/ML 5 ML ORAL.SUSP. SWSW SCH ×3 (12:10→20:27)
[2020-09-10 15:00] VITALS: BP 122/59
[2020-09-10] MEDS: ESTRADIOL 0.01% VAGINAL CREAM 42.5GM TUBE. VG SCH (18:19)
--- NOTE | 2020-09-10 18:22 | RAD ---
EXAM: XR CHEST 1V 09/10/2020 3:12 PM CLINICAL INDICATION: Pneumonia COMPARISON: Chest radiograph 09/04/2020 TECHNIQUE: AP upright view of the chest FINDINGS: The cardiomediastinal silhouette is normal. There are airspace opacities in the lateral le ft lung base, slightly increased. Mild opacities versus small effusion at the right costophrenic sulc us. No pneumothorax. No acute osseous abnormality. IMPRESSION: Slightly increased left basilar opacities. Decreased but persistent minimal opacities or small effusion at the right costophrenic sulcus. Electronically signed by: Shira Hernandez MD (09/10/2020 6:20 PM) [id number]
[2020-09-10 19:00] VITALS: BP 125/77
--- NOTE | 2020-09-10 19:17 | CONS ---
DATE OF CONSULTATION: PULMONARY CONSULTATION ATTENDING PHYSICIAN: Dr. Wheat. REASON FOR CONSULTATION: Respiratory failure, history of lung cancer, COVID positive. HISTORY OF PRESENT ILLNESS: The patient is a 79-year-old female who is known to me in the past. The patient has history of COPD. She uses oxygen at nighttime. She smoked for 50 years. She quit 2-1/2 years ago. She also had a spiculated nodule at the beginning of 2019. At that time, she declined for any invasive procedure. The patient eventually was referred to [facility] where she stated that the empiric radiation was given to her without the biopsy. She finished in December. The patient was diagnosed with COVID-19 about a month ago. The patient states that she has been complaining of some shortness of breath. She has a mild cough. No fever or chills. No chest pains. No increased leg edema. The patient's chest x-ray was reviewed by me. She had a chest x-ray on 08/30/2020, which showed infiltrate in the right lung and also minimal infiltrate in the left lower lobe. She had followup chest x-rays since then and overall chest x-ray has shown improvement in infiltrate in the right lung and some slightly more prominent infiltrate in the left base. The patient is currently requiring oxygen at 2.5 liters, initially she was on 5 liters. I have been asked to see her for further evaluation. PAST MEDICAL HISTORY: History of hypertension, hyperlipidemia, history of COPD likely severe, uses oxygen at night. History of spiculated nodule in the right lower lobe, which was PET positive in 10/2019. Status post empiric radiation, which she finished at in December. PAST SURGICAL HISTORY: Deviated septum surgery. FAMILY HISTORY: Dyslipidemia and hypertension. SOCIAL HISTORY: Smoked for 50 years before quitting. ALLERGIES: All reviewed as listed in the MRAD. MEDICATIONS: All reviewed as listed in the MRAD including dexamethasone, Xarelto and DuoNeb. REVIEW OF SYSTEMS: Twelve-point system obtained. Pertinent positives discussed in my history of present illness, otherwise noncontributory. All systems that were negative were reviewed as well. FAMILY HISTORY: Noncontributory to lungs. PHYSICAL EXAMINATION: On examination which was done via telemedicine, she is stable on 2.5 liters of oxygen, afebrile. Blood pressure is stable. No obvious respiratory distress. She has trace pitting edema. No skin rash. LABORATORY DATA: Reviewed. White cell count 12.4, hemoglobin 11.9 and platelets are 528. BUN 47, creatinine 1.5, which is increased since 2 days ago. D-dimer is 1.71, which was 0.86 on the 9th. IMPRESSION: 1. Acute hypoxic respiratory failure in a patient with severe underlying chronic obstructive pulmonary disease. The respiratory failure is contributed by development of pneumonia, likely gram-negative, for which she has been treated since 08/30/2020. 2. Abnormal chest x-ray with bilateral infiltrates. Overall, infiltrates have been improving on the right lung, but more prominent on the left base and would need to be empirically treated with antibiotics. 3. Previous PET positive spiculated nodule in the right lower lobe, which was about 2.5 cm. She declined any invasive treatment and was referred to [facility] and did empiric radiation, which ended in December. She has not had any followup scans since then. Some of the radiographic changes could be related to some radiation-induced scarring as well. 4. History of chronic anticoagulation. RECOMMENDATIONS: 1. Continue present oxygen to keep saturation 92 and above. 2. Empiric antibiotics. 3. We will do a noncontrast CT chest to better evaluate for pneumonia and radiation induces scarring in the right lung and also to follow up on the right lower lobe 2.5 cm mass from last year. 4. Anticoagulation per PCP. 5. Continue bronchodilators. 6. Continue steroids for COVID infection. 7. The patient would benefit from discharge to the skilled care facility. 8. Discussed with RN and we will follow along with you. ROSA RAM MD DR: BELLA/melvin JOB#: [id number] / [id number]
[2020-09-10] MEDS: QUEtiapine 25 MG TABLET. PO SCH (20:27)
[2020-09-10] MEDS: ZOLPIDEM 5 MG TABLET. PO PRN (20:27)
[2020-09-10] MEDS: MIRTAZAPINE 15 MG TABLET PO SCH (20:28)
[2020-09-10] MEDS: ATORVASTATIN CALCIUM 20 MG TABLET PO SCH (20:28)
[2020-09-10 23:00] VITALS: BP 102/58
[2020-09-11 03:19] VITALS: BP 98/57
[2020-09-11] MEDS: LEVOTHYROXINE 125 MCG TABLET PO SCH (05:34)
[2020-09-11 07:19] VITALS: BP 131/61
[2020-09-11] MEDS: IPRATROPIUM/ALBUTEROL 20/100mcg/INH INHALER. INH SCH ×4 (08:23→20:32)
[2020-09-11] MEDS: LACTOBACILLUS RHAMNOSUS GG 1 CAPSULE. PO SCH ×2 (08:23→20:33)
[2020-09-11] MEDS: buPROPion SR 150 MG TABLET.SA PO SCH (08:23)
[2020-09-11] MEDS: SPIRONOLACTONE 25 MG TABLET PO SCH (08:24)
[2020-09-11] MEDS: CALCIUM CARB/VIT D3 500/200 TABLET. PO SCH ×2 (08:25→15:59)
[2020-09-11] MEDS: RIVAROXABAN 15 MG TABLET. PO SCH (08:26)
[2020-09-11] MEDS: CARVEDILOL 3.125 MG TABLET. PO SCH ×2 (08:26→16:00)
[2020-09-11] MEDS: LOSARTAN POTASSIUM 50 MG TABLET. PO SCH (08:26)
[2020-09-11] MEDS: NYSTATIN 100,000 UNITS/ML 5 ML ORAL.SUSP. SWSW SCH ×4 (08:27→20:32)
[2020-09-11] MEDS: DEXAMETHASONE 4 MG TABLET PO SCH (08:27)
[2020-09-11] MEDS: ALPRAZolam 0.5 MG TABLET PO PRN ×3 (08:27→20:32)
[2020-09-11] MEDS: OMEGA-3 FATTY ACIDS/FISH OIL 1,000 MG CAPSULE. PO SCH (08:28)
[2020-09-11] MEDS: MULTIVITAMIN with MINERAL TABLET. PO SCH (08:28)
[2020-09-11] MEDS: DOXYCYCLINE HYCLATE 100 MG TABLET PO SCH ×2 (08:28→20:32)
[2020-09-11] MEDS: PSYLLIUM HUSK (SUGAR FREE) 1 PKT PACKET PO SCH (08:30)
--- NOTE | 2020-09-11 09:38 | PDOC ---
PULMONARY PROGRESS NOTES DATE: 09/11/20 TIME: 09:33 Vitals Vital Signs Date Time Temp Pulse Resp B/P (MAP) Pulse Ox O2 Delivery O2 Flow Rate FiO2 09/11/20 08:26 111 131/61 09/11/20 07:19 97.8 22 91 Nasal Cannula 5.0 97.8 Labs Laboratory Tests Test 09/10/20 09:25 White Blood Count 12.4 x10^3/uL (4.0-11.0) Red Blood Count 3.73 x10^6/uL (3.50-5.40) Hemoglobin 11.9 g/dL (12.0-15.5) Hematocrit 36.1 % (36.0-47.0) Mean Corpuscular Volume 97 fL (79-100) Mean Corpuscular Hemoglobin 32 pg (25-35) Mean Corpuscular Hemoglobin Concent 33 g/dL (31-37) Red Cell Distribution Width 14.4 % (11.5-14.5) Platelet Count 528 x10^3/uL (140-400) Neutrophils (%) (Auto) 89 % (31-73) Lymphocytes (%) (Auto) 7 % (24-48) Monocytes (%) (Auto) 4 % (0-9) Eosinophils (%) (Auto) 0 % (0-3) Basophils (%) (Auto) 0 % (0-3) Neutrophils # (Auto) 11.0 x10^3/uL (1.8-7.7) Lymphocytes # (Auto) 0.9 x10^3/uL (1.0-4.8) Monocytes # (Auto) 0.5 x10^3/uL (0.0-1.1) Eosinophils # (Auto) 0.0 x10^3/uL (0.0-0.7) Basophils # (Auto) 0.0 x10^3/uL (0.0-0.2) D-Dimer (Denise) 1.71 ug/mlFEU (0.00-0.50) Sodium Level 138 mmol/L (136-145) Potassium Level 4.8 mmol/L (3.5-5.1) Chloride Level 101 mmol/L (98-107) Carbon Dioxide Level 26 mmol/L (21-32) Anion Gap 11 (6-14) Blood Urea Nitrogen 47 mg/dL (7-20) Creatinine 1.5 mg/dL (0.6-1.0) Estimated GFR (Cockcroft-Gault) 33.6 BUN/Creatinine Ratio 31 (6-20) Glucose Level 140 mg/dL (70-99) Calcium Level 9.5 mg/dL (8.5-10.1) Total Bilirubin 0.6 mg/dL (0.2-1.0) Aspartate Amino Transf (AST/SGOT) 19 U/L (15-37) Alanine Aminotransferase (ALT/SGPT) 29 U/L (14-59) Alkaline Phosphatase 77 U/L (46-116) Total Protein 6.7 g/dL (6.4-8.2) Albumin 2.8 g/dL (3.4-5.0) Albumin/Globulin Ratio 0.7 (1.0-1.7) Medications Active Scripts Medications Dose Route/Sig Max Daily Dose Days Date Category Xarelto (Rivaroxaban) 15 Mg Tablet 1 Tab PO DAILY 30 09/05/20 Reported Metamucil (Psyllium Husk) 0.52 Gm Capsule 1 Cap PO DAILY 30 09/05/[address] 1,000 Mg Softgel (Hollister-3S/Dha/Epa/Fish Oil) 1 Each Capsule.dr 1 Cap PO DAILY 30 09/05/20 Reported Macrodantin (Nitrofurantoin Macrocrystal) 50 Mg Capsule 1 Cap PO TWICE WEEKLY 30 09/05/20 Reported Multi Vitamin Daily (Multivitamin) 1 Each Tablet 1 Tab PO DAILY 30 09/05/20 Reported Irbesartan 300 Mg Tablet 300 Mg PO DAILY 09/05/20 Reported Estrace (Estradiol) 42.5 Gm Cream.appl 1 Gm VG TWICE WEEKLY 09/05/20 Reported Mohan-Citrate Plus Vitamin D Tab (Calcium Citrate/Vitamin D2) 1 Each Tablet 1 Tab PO BID 5 09/05/20 Reported Alendronate Sodium 70 Mg Tablet 1 Tab PO WEEKLY 09/05/20 Reported Synthroid (Levothyroxine Sodium) 125 Mcg Tablet 125 Mcg PO DAILYAC 09/05/20 Reported Quetiapine Fumarate 50 Mg Tablet 50 Mg PO QHS 09/05/20 Reported Spironolactone 25 Mg Tablet 12.5 Mg PO DAILY 09/05/20 Reported Bupropion Hcl Sr (Bupropion Hcl) 150 Mg Tablet.er 300 Mg PO DAILY 09/05/20 Reported Alprazolam 1 Mg Tablet 1 Mg PO TID 09/05/20 Reported Carvedilol 6.25 Mg Tablet 3.125 Mg PO BIDWMEALS 09/05/20 Reported Atorvastatin Calcium 20 Mg Tablet 20 Mg PO QHS 09/05/20 Reported Impression . IMPRESSION: 1. Acute hypoxic respiratory failure in a patient with severe underlying chronic obstructive pulmonary disease. The respiratory failure is contributed by development of pneumonia, likely gram-negative, for which she has been treated since 08/30/2020. 2. Abnormal chest x-ray with bilateral infiltrates. Overall, infiltrates have been improving on the right lung, but more prominent on the left base and would need to be empirically treated with antibiotics. 3. Previous PET positive spiculated nodule in the right lower lobe, which was about 2.5 cm. She declined any invasive treatment and was referred to [facility] and did empiric radiation, which ended in December. She has not had any followup scans since then. Some of the radiographic changes could be related to some radiation-induced scarring as well. 4. History of chronic anticoagulation. 5. FARRA[facility] Plan . RECOMMENDATIONS: Continue Supplemental oxygen baseline 2 liters N/C, now on 4 liters N/C Continue ABX, on DOXY Continue steroids for covid-[address] chest pending --- will review FARRAH-- IVF- monitor renal function Social work for D/C planning, planned to go to SNF DVT/GI PPX D/W RN Pt. is DNR ROSA RAM MD Sep 11, 2020 09:38
[2020-09-11] MEDS ORDERED: IV NORMAL SALINE 1000ML BAG 1,000 ML IV ONE (09:45)
[2020-09-11 09:52] LABS: BASO % 0 % (0-3); EOS % 0 % (0-3); HEMATOCRIT 34.8 % (36.0-47.0); HEMOGLOBIN 11.7 g/dL (12.0-15.5); LYMPH # 0.8 x10^3/uL (1.0-4.8); LYMPH % 7 % (24-48); MEAN CORPUSCULAR HEMOGLOBIN 33 pg (25-35); MEAN CORPUSCULAR HGB CONC 34 g/dL (31-37); MEAN CORPUSCULAR VOLUME 97 fL (79-100); MONO # 0.7 x10^3/uL (0.0-1.1); MONO % 6 % (0-9); NEUT # 10.6 x10^3/uL (1.8-7.7); NEUT % 87 % (31-73); PLATELET COUNT 453 x10^3/uL (140-400); RED BLOOD COUNT 3.58 x10^6/uL (3.50-5.40); RED CELL DISTRIBUTION WIDTH 14.1 % (11.5-14.5); WHITE BLOOD COUNT 12.2 x10^3/uL (4.0-11.0)
[2020-09-11 10:00] LABS: ALBUMIN 2.7 g/dL (3.4-5.0); ALBUMIN/GLOBULIN RATIO 0.8 (1.0-1.7); CALCIUM 9.5 mg/dL (8.5-10.1); CREATININE 1.7 mg/dL (0.6-1.0); GFR 29.1; POTASSIUM 4.5 mmol/L (3.5-5.1); TOTAL BILIRUBIN 0.7 mg/dL (0.2-1.0); TOTAL PROTEIN 6.3 g/dL (6.4-8.2)
[2020-09-11 11:14] VITALS: BP 122/58
--- NOTE | 2020-09-11 11:29 | PDOC ---
PROGRESS NOTES Date of Service: DATE: 09/11/20 TIME: 11:28 Chief Complaint Chief Complaint IMPRESSION Acute hypoxic respiratory failure - due to COVID 19 with secondary bacterial pneumonia as well. Cont antibiotics, steroids, wean O2 as tolerated COVID 19 with pneumonia -continue steroids and remdesivir. Acute hyponatremia - resolving Pneumonia - likely gram negative with structural lung disease. Will cont antibiotics Diarrhea - likely COVID related. infectious w/u negative Sepsis - from COVID 19, will monitor COPD - moderate-severe. Will cont inhalers MDI with steroids, wean O2 as tolerated., REMAINS 5 LITERS NC O2 PLAN FEN - General diet PPX - lovenox DNR/DNI Dispo - inpatient History of Present Illness History of Present Illness Ms Hamm is a 79-year-old female w/ PMHx Anxiety, Arthritis, CHF, COPD, High Cholesterol, Hypertension, rheumatic fever, and GLORY on 2L NCO2 nightly who was transferred from [facility] for worsening O2 status under treatment for COVID 19. She initially presented for weakness, fatigue, shortness of breath, and decreased p.o. intake. She has been having diarrhea for about 6 weeks and was hospitalized for the same prior. Patient was also hypoxic on room air satting 84%. Patient has a history of COPD and uses oxygen at night but not during the day. She was started on steroids by her primary care physician and had 1 dose prior to admission. Patient states she has had a productive cough denies any nausea and vomiting. She was exposed to Covid by her daughter who came over for . Her daughter and had a test performed prior to the holiday, got the positive results after being at her mother's for the holiday. She denies any loss of taste or smell but says she lives alone and because she has not felt well is lacking motivation to get out and make food. States there is no blood in her stools no tarry looking stools. Chest radiograph with bilateral pneumonia For her diarrhea [facility] she had a C. difficile and Salmonella Shigella test negative negative for parasites. Her test for COVID-19 on 1230 came back positive and she was initiated on remdesivir on 09/04/2020. She also had an ABG at that time and while on a 40% FiO2 pH 74 PaCO2 42 PaO2 71. Repeat chest x-ray on 09/04/2020 showed improvement in her right basilar infiltrate but left infiltrate as well and emphysema. Labs prior to discharge to [facility] WBC 1.3, Hb 8.6, platelets 231, NA 134, K4.5, BUN 19, CR 1.1, glucose 126, calcium 6.5. EKG was Sinus rhythm, wide complex with left axis deviation, intraventricular block. No ST elevation or depression. 09/07: Afebrile overnight. 10 L nasal cannula O2. She has had difficulty sleeping. Still feeling weak and very little appetite. Still short of breath with cough that is productive today. No chest pain.' 09/08: Afebrile overnight. Out of 8 L nasal cannula O2. Slept a little better but still with difficulty sleeping. Appetite is still low. Still short of breath cough is still productive. No chest pain. No diarrhea. Afebrile. On 6 liters nasal cannula O2. Slept significantly better and appetite is increased. Of breath with cough. Still feeling very weak. No chest pain no diarrhea. Plan: 6 min walk to modify her home O2 F/u therapy recs home health vs SNF D/c in next 24-48 hours Vitals Vitals Vital Signs Date Time Temp Pulse Resp B/P (MAP) Pulse Ox O2 Delivery O2 Flow Rate FiO2 09/11/20 08:26 111 131/61 09/11/20 07:19 97.8 22 91 Nasal Cannula 5.0 97.8 Physical Exam General: Alert, Oriented X3, Cooperative, moderate distress Heart: Regular rate Lungs: Crackles Abdomen: Normal bowel sounds, Soft, No tenderness, No hepatosplenomegaly, No masses Extremities: No clubbing, No cyanosis, No edema, Normal pulses, No tenderness/swelling Skin: No rashes, No breakdown, No significant lesion Labs LABS PATIENT: ISABELLE HAMM ACCOUNT: [id number] : 1940 LOCATION: [address] [place] [address] AGE: 79 SEX: F EXAM STATUS: ADM IN ORD. PHYSICIAN: LOUIE OH MD REASON: pneumonia PROCEDURE: CHEST AP ONLY EXAM: XR CHEST 1V 09/10/2020 3:12 PM CLINICAL INDICATION: Pneumonia COMPARISON: Chest radiograph 09/04/2020 TECHNIQUE: AP upright view of the chest FINDINGS: The cardiomediastinal silhouette is normal. There are airspace opacities in the lateral left lung base, slightly increased. Mild opacities versus small effusion at the right costophrenic sulcus. No pneumothorax. No acute osseous abnormality. IMPRESSION: Slightly increased left basilar opacities. Decreased but persistent minimal opacities or small effusion at the right costophrenic sulcus. Electronically signed by: Shira Hernandez MD (09/10/2020 6:20 PM) [id number] DICTATED and SIGNED BY: SHIRA HERNANDEZ MD DATE: 09/10/20 [id number] PROCEDURE: CHEST AP ONLY EXAM: XR CHEST 1V 09/10/2020 3:12 PM CLINICAL INDICATION: Pneumonia COMPARISON: Chest radiograph 09/04/2020 TECHNIQUE: AP upright view of the chest FINDINGS: The cardiomediastinal silhouette is normal. There are airspace opacities in the lateral left lung base, slightly increased. Mild opacities versus small effusion at the right costophrenic sulcus. No pneumothorax. No acute osseous abnormality. IMPRESSION: Slightly increased left basilar opacities. Decreased but persistent minimal opacities or small effusion at the right costophrenic sulcus. Electronically signed by: Shira Hernandez MD (09/10/2020 6:20 PM) [id number] DICTATED and SIGNED BY: SHIRA HERNANDEZ MD Laboratory Tests Test 09/11/20 09:10 White Blood Count 12.2 x10^3/uL (4.0-11.0) Red Blood Count 3.58 x10^6/uL (3.50-5.40) Hemoglobin 11.7 g/dL (12.0-15.5) Hematocrit 34.8 % (36.0-47.0) Mean Corpuscular Volume 97 fL (79-100) Mean Corpuscular Hemoglobin 33 pg (25-35) Mean Corpuscular Hemoglobin Concent 34 g/dL (31-37) Red Cell Distribution Width 14.1 % (11.5-14.5) Platelet Count 453 x10^3/uL (140-400) Neutrophils (%) (Auto) 87 % (31-73) Lymphocytes (%) (Auto) 7 % (24-48) Monocytes (%) (Auto) 6 % (0-9) Eosinophils (%) (Auto) 0 % (0-3) Basophils (%) (Auto) 0 % (0-3) Neutrophils # (Auto) 10.6 x10^3/uL (1.8-7.7) Lymphocytes # (Auto) 0.8 x10^3/uL (1.0-4.8) Monocytes # (Auto) 0.7 x10^3/uL (0.0-1.1) Eosinophils # (Auto) 0.0 x10^3/uL (0.0-0.7) Basophils # (Auto) 0.0 x10^3/uL (0.0-0.2) Sodium Level 138 mmol/L (136-145) Potassium Level 4.5 mmol/L (3.5-5.1) Chloride Level 102 mmol/L (98-107) Carbon Dioxide Level 27 mmol/L (21-32) Anion Gap 9 (6-14) Blood Urea Nitrogen 54 mg/dL (7-20) Creatinine 1.7 mg/dL (0.6-1.0) Estimated GFR (Cockcroft-Gault) 29.1 BUN/Creatinine Ratio 32 (6-20) Glucose Level 93 mg/dL (70-99) Calcium Level 9.5 mg/dL (8.5-10.1) Total Bilirubin 0.7 mg/dL (0.2-1.0) Aspartate Amino Transf (AST/SGOT) 20 U/L (15-37) Alanine Aminotransferase (ALT/SGPT) 28 U/L (14-59) Alkaline Phosphatase 78 U/L (46-116) Total Protein 6.3 g/dL (6.4-8.2) Albumin 2.7 g/dL (3.4-5.0) Albumin/Globulin Ratio 0.8 (1.0-1.7) Comment Review of Relevant I have reviewed the following items eric (where applicable) has been applied. Labs Laboratory Tests Test 09/10/20 09:25 09/11/20 09:10 White Blood Count 12.4 x10^3/uL (4.0-11.0) 12.2 x10^3/uL (4.0-11.0) Red Blood Count 3.73 x10^6/uL (3.50-5.40) 3.58 x10^6/uL (3.50-5.40) Hemoglobin 11.9 g/dL (12.0-15.5) 11.7 g/dL (12.0-15.5) Hematocrit 36.1 % (36.0-47.0) 34.8 % (36.0-47.0) Mean Corpuscular Volume 97 fL (79-100) 97 fL (79-100) Mean Corpuscular Hemoglobin 32 pg (25-35) 33 pg (25-35) Mean Corpuscular Hemoglobin Concent 33 g/dL (31-37) 34 g/dL (31-37) Red Cell Distribution Width 14.4 % (11.5-14.5) 14.1 % (11.5-14.5) Platelet Count 528 x10^3/uL (140-400) 453 x10^3/uL (140-400) Neutrophils (%) (Auto) 89 % (31-73) 87 % (31-73) Lymphocytes (%) (Auto) 7 % (24-48) 7 % (24-48) Monocytes (%) (Auto) 4 % (0-9) 6 % (0-9) Eosinophils (%) (Auto) 0 % (0-3) 0 % (0-3) Basophils (%) (Auto) 0 % (0-3) 0 % (0-3) Neutrophils # (Auto) 11.0 x10^3/uL (1.8-7.7) 10.6 x10^3/uL (1.8-7.7) Lymphocytes # (Auto) 0.9 x10^3/uL (1.0-4.8) 0.8 x10^3/uL (1.0-4.8) Monocytes # (Auto) 0.5 x10^3/uL (0.0-1.1) 0.7 x10^3/uL (0.0-1.1) Eosinophils # (Auto) 0.0 x10^3/uL (0.0-0.7) 0.0 x10^3/uL (0.0-0.7) Basophils # (Auto) 0.0 x10^3/uL (0.0-0.2) 0.0 x10^3/uL (0.0-0.2) D-Dimer (Denise) 1.71 ug/mlFEU (0.00-0.50) Sodium Level 138 mmol/L (136-145) 138 mmol/L (136-145) Potassium Level 4.8 mmol/L (3.5-5.1) 4.5 mmol/L (3.5-5.1) Chloride Level 101 mmol/L (98-107) 102 mmol/L (98-107) Carbon Dioxide Level 26 mmol/L (21-32) 27 mmol/L (21-32) Anion Gap 11 (6-14) 9 (6-14) Blood Urea Nitrogen 47 mg/dL (7-20) 54 mg/dL (7-20) Creatinine 1.5 mg/dL (0.6-1.0) 1.7 mg/dL (0.6-1.0) Estimated GFR (Cockcroft-Gault) 33.6 29.1 BUN/Creatinine Ratio 31 (6-20) 32 (6-20) Glucose Level 140 mg/dL (70-99) 93 mg/dL (70-99) Calcium Level 9.5 mg/dL (8.5-10.1) 9.5 mg/dL (8.5-10.1) Total Bilirubin 0.6 mg/dL (0.2-1.0) 0.7 mg/dL (0.2-1.0) Aspartate Amino Transf (AST/SGOT) 19 U/L (15-37) 20 U/L (15-37) Alanine Aminotransferase (ALT/SGPT) 29 U/L (14-59) 28 U/L (14-59) Alkaline Phosphatase 77 U/L (46-116) 78 U/L (46-116) Total Protein 6.7 g/dL (6.4-8.2) 6.3 g/dL (6.4-8.2) Albumin 2.8 g/dL (3.4-5.0) 2.7 g/dL (3.4-5.0) Albumin/Globulin Ratio 0.7 (1.0-1.7) 0.8 (1.0-1.7) Laboratory Tests Test 09/11/20 09:10 White Blood Count 12.2 x10^3/uL (4.0-11.0) Red Blood Count 3.58 x10^6/uL (3.50-5.40) Hemoglobin 11.7 g/dL (12.0-15.5) Hematocrit 34.8 % (36.0-47.0) Mean Corpuscular Volume 97 fL (79-100) Mean Corpuscular Hemoglobin 33 pg (25-35) Mean Corpuscular Hemoglobin Concent 34 g/dL (31-37) Red Cell Distribution Width 14.1 % (11.5-14.5) Platelet Count 453 x10^3/uL (140-400) Neutrophils (%) (Auto) 87 % (31-73) Lymphocytes (%) (Auto) 7 % (24-48) Monocytes (%) (Auto) 6 % (0-9) Eosinophils (%) (Auto) 0 % (0-3) Basophils (%) (Auto) 0 % (0-3) Neutrophils # (Auto) 10.6 x10^3/uL (1.8-7.7) Lymphocytes # (Auto) 0.8 x10^3/uL (1.0-4.8) Monocytes # (Auto) 0.7 x10^3/uL (0.0-1.1) Eosinophils # (Auto) 0.0 x10^3/uL (0.0-0.7) Basophils # (Auto) 0.0 x10^3/uL (0.0-0.2) Sodium Level 138 mmol/L (136-145) Potassium Level 4.5 mmol/L (3.5-5.1) Chloride Level 102 mmol/L (98-107) Carbon Dioxide Level 27 mmol/L (21-32) Anion Gap 9 (6-14) Blood Urea Nitrogen 54 mg/dL (7-20) Creatinine 1.7 mg/dL (0.6-1.0) Estimated GFR (Cockcroft-Gault) 29.1 BUN/Creatinine Ratio 32 (6-20) Glucose Level 93 mg/dL (70-99) Calcium Level 9.5 mg/dL (8.5-10.1) Total Bilirubin 0.7 mg/dL (0.2-1.0) Aspartate Amino Transf (AST/SGOT) 20 U/L (15-37) Alanine Aminotransferase (ALT/SGPT) 28 U/L (14-59) Alkaline Phosphatase 78 U/L (46-116) Total Protein 6.3 g/dL (6.4-8.2) Albumin 2.7 g/dL (3.4-5.0) Albumin/Globulin Ratio 0.8 (1.0-1.7) Medications Current Medications Alprazolam (Xanax) 1 mg TID PO Last administered on 09/05/20at 22:26; Start 09/05/20 at 21:00; Stop 09/06/20 at 08:14; Status DC Atorvastatin Calcium (Lipitor) 20 mg QHS PO Last administered on 09/10/20at 20:28; Start 09/05/20 at 21:00 Bupropion HCl (Wellbutrin Sr) 300 mg DAILY PO Last administered on 09/11/20at 08:23; Start 09/06/20 at 09:00 Carvedilol (Coreg) 3.125 mg BIDWMEALS PO Last administered on 09/11/20 08:26; Start 09/06/20 at 08:00 Estradiol (Estrace) 1 angelica QMTH VG Last administered on 09/10/20at 18:19; Start 09/06/20 at 16:00 Levothyroxine Sodium (Synthroid) 125 mcg DAILY06 PO Last administered on 09/11/20at 05:34; Start 09/06/20 at 06:00 Rivaroxaban (Xarelto) 15 mg DAILY PO Last administered on 09/11/20 08:26; Start 09/06/20 at 09:00 Spironolactone (Aldactone) 12.5 mg DAILY PO Last administered on 09/11/20 08:24; Start 09/06/20 at 09:00 Non-Formulary Medication (Alendronate Sodium ) 1 tab WEEKLY PO ; Start 09/12/20 at 09:00; Status UNV Calcium/Vitamin D (Oscal D 500mg/ 200uts) 1 tab BIDWMEALS PO Last administered on 09/11/20 08:25; Start 09/06/20 at 08:00 Losartan Potassium (Cozaar) 100 mg DAILY PO Last administered on 09/11/20 08:26; Start 09/06/20 at 09:00 Multivitamins (Thera M Plus) 1 tab DAILY PO Last administered on 09/11/20 08:28; Start 09/06/20 at 09:00 Nitrofurantoin Macrocrystals (Macrobid) 100 mg SuTh PO Last administered on 09/09/20 09:03; Start 09/06/20 at 09:00 Fish Oil (Fish Oil) 1,000 mg DAILY PO Last administered on 09/11/20 08:28; Start 09/06/20 at 09:00 Psyllium Hydrophilic Mucilloid (Metamucil Fiber Packet) 1 pkt DAILY PO Last administered on 09/10/20 08:45; Start 09/06/20 at 09:00 Quetiapine Fumarate (SEROquel) 50 mg QHS PO Last administered on 09/10/20 20:27; Start 09/05/20 at 21:00 Dexamethasone Sodium Phosphate (Decadron) 4 mg Q6HRS IVP Last administered on 09/09/20 11:33; Start 09/06/20 at 00:00; Stop 09/09/20 at 13:30; Status DC Albuterol/ Ipratropium (Combivent Respimat 20-100 Mcg) 1 puff RTQID INH Last administered on 09/11/20 08:23; Start 09/06/20 at 08:00 Lactobacillus Rhamnosus (Culturelle) 1 cap BID PO Last administered on 09/11/20 08:23; Start 09/05/20 at 21:30 Loperamide HCl (Imodium) 2 mg PRN Q15MIN PRN PO DIARRHEA Last administered on 09/08/20 20:21; Start 09/05/20 at 21:15 Guaifenesin (Mucinex) 600 mg BID PO Last administered on 09/11/20 08:27; Start 09/05/20 at 21:30 Info (Anti-Coagulation Monitoring By Pharmacy) 1 each PRN DAILY PRN SEE COM MENTS Last administered on 09/09/20 11:36; Start 09/05/20 at 21:30 Azithromycin 500 mg/Sodium Chloride 250 ml @ 250 mls/hr Q24H IV Last administered on 09/09/20at 12:37; Start 09/06/20 at 13:00; Stop 09/09/20 at 13:30; Status DC Enoxaparin Sodium (Lovenox 40mg Syringe) 40 mg Q24H SQ ; Start 09/06/20 at 12:00; Status UNV Ceftriaxone Sodium (Rocephin) 1 gm Q24H IVP Last administered on 09/09/20at 11:34; Start 09/06/20 at 12:00; Stop 09/09/20 at 13:30; Status DC Remdesivir 100 mg/ Sodium Chloride 230 ml @ 460 mls/hr Q24H IV Last administered on 09/08/20at 09:55; Start 09/06/20 at 09:00; Stop 09/08/20 at 09:29; Status DC Acetaminophen (Tylenol) 650 mg PRN Q6HRS PRN PO MILD PAIN / TEMP > 100.3'F Last administered on 09/07/20at 20:33; Start 09/06/20 at 00:45 Alprazolam (Xanax) 0.5 mg PRN TID PRN PO anxiety Last administered on 09/11/20 08:27; Start 09/06/20 at 08:30 Amino Acids/ Glycerin/ Electrolytes 1,000 ml @ 80 mls/hr [id number] IV Last administered on 09/09/20at 00:14; Start 09/06/20 at 12:15; Stop 09/09/20 at 13:30; Status DC Zolpidem Tartrate (Ambien) 5 mg PRN QHS PRN PO INSOMNIA Last administered on 09/10/20at 20:27; Start 09/07/20 at 21:00 Mirtazapine (Remeron) 15 mg QHS PO Last administered on 09/10/20at 20:28; Start 09/08/20 at 21:00 Dexamethasone (Decadron) 4 mg [id number] PO Last administered on 09/11/20at 08:27; Start 09/10/20 at 08:00; Stop 09/20/20 at 07:59 Doxycycline Hyclate (Vibra-Tab) 100 mg BID PO Last administered on 1/12/21at 08:28; Start 09/09/20 at 21:00; Stop 09/14/20 at 21:01 Nystatin (Nystatin Oral Susp) 5 ml [id number] Last administered on 09/11/20at 08:27; Start 09/10/20 at 13:00 Sodium Chloride 1,000 ml @ 100 mls/hr 1X ONCE IV Last administered on 09/11/20at 10:29; Start 09/11/20 at 09:45; Stop 09/11/20 at 19:44 Active Scripts Active Reported Xarelto (Rivaroxaban) 15 Mg Tablet 1 Tab PO DAILY 30 Days Metamucil (Psyllium Husk) 0.52 Gm Capsule 1 Cap PO DAILY [address] 1,000 Mg Softgel (Carlton-3S/Dha/Epa/Fish Oil) 1 Each Capsule.dr 1 Cap PO DAILY 30 Days Macrodantin (Nitrofurantoin Macrocrystal) 50 Mg Capsule 1 Cap PO TWICE WEEKLY 30 Days Multi Vitamin Daily (Multivitamin) 1 Each Tablet 1 Tab PO DAILY 30 Days Irbesartan 300 Mg Tablet 300 Mg PO DAILY Estrace (Estradiol) 42.5 Gm Cream.appl 1 Gm VG TWICE WEEKLY Mohan-Citrate Plus Vitamin D Tab (Calcium Citrate/Vitamin D2) 1 Each Tablet 1 Tab PO BID 5 Days Alendronate Sodium 70 Mg Tablet 1 Tab PO WEEKLY Synthroid (Levothyroxine Sodium) 125 Mcg Tablet 125 Mcg PO DAILYAC Quetiapine Fumarate 50 Mg Tablet 50 Mg PO QHS Spironolactone 25 Mg Tablet 12.5 Mg PO DAILY Bupropion Hcl Sr (Bupropion Hcl) 150 Mg Tablet.er 300 Mg PO DAILY Alprazolam 1 Mg Tablet 1 Mg PO TID Carvedilol 6.25 Mg Tablet 3.125 Mg PO BIDWMEALS Atorvastatin Calcium 20 Mg Tablet 20 Mg PO QHS Vitals/I & O Vital Sign - Last 24 Hours 09/10/20 09/10/20 09/10/20 09/10/20 15:00 16:42 19:00 19:00 Temp 97.1 96.5 97.1 96.5 Pulse 101 101 100 Resp 27 23 B/P (MAP) 122/59 (80) 122/59 125/77 (93) Pulse Ox 94 93 O2 Delivery Nasal Cannula Nasal Cannula Nasal Cannula O2 Flow Rate 2.5 5.0 4.0 09/10/20 09/11/20 09/11/20 09/11/20 23:00 03:19 07:19 08:26 Temp 97.2 97.0 97.8 97.2 97.0 97.8 Pulse 107 106 111 111 Resp 29 26 22 B/P (MAP) 102/58 (73) 98/57 (71) 131/61 (84) 131/61 Pulse Ox 92 93 91 O2 Delivery Nasal Cannula Nasal Cannula Nasal Cannula O2 Flow Rate 5.0 5.0 5.0 09/11/20 08:26 Pulse 111 B/P (MAP) 131/61 Intake and Output 09/10/20 09/10/20 09/11/20 15:00 23:00 07:00 Intake Total 275 ml 100 ml 250 ml Balance 275 ml 100 ml 250 ml Justicifation of Admission Dx: Justifications for Admission: Justification of Admission Dx: Yes Comminuty Aquired Pneumonia: Hypoxemia LOUIE OH MD Sep 11, 2020 11:28
[2020-09-11] MEDS: ACETAMINOPHEN 325 MG TABLET. PO PRN ×2 (11:42→20:40)
[2020-09-11 15:14] VITALS: BP 136/80
[2020-09-11] MEDS: ANTI-COAG MONITOR BY PHARMACY. MC PRN (15:48)
--- NOTE | 2020-09-11 17:24 | RAD ---
EXAM: CT Chest without IV contrast INDICATION: Reason: pneumonia, h/o RLL mass, XRT Rx / Spl. Instructions: / History: TECHNIQUE: Multi-detector row CT images were acquired from the thoracic inlet through the upper abdo men without the use of IV contrast. Sagittal and coronal images were acquired from the transaxial nasir a. All CT scans performed at this facility utilize dose optimization techniques as appropriate to the exam, including the following: Automated exposure control and adjustment of the mA and/or KV accordi ng to patient size (this includes techniques or standardized protocols for targeted exams where dose is indication/reason for exam). COMPARISON: PET CT of 10/28/2019 FINDINGS: The absence of IV contrast limits evaluation of soft tissue pathology. CARDIOVASCULAR: Unremarkable MEDIASTINUM & LUIZ: Patulous thoracic esophagus with air-fluid level up to the proximal descending th oracic aorta. No mediastinal mass or adenopathy. LUNGS: Panlobular emphysema is redemonstrated with more apparent subtle patchy peripheral predominant ground glass attenuation opacities along with new subpleural scarring and mild architectural distortion. Interval decrease in size of the spiculated mass in the superior segment right lower lobe, with resid ual 13 mm x 5 mm irregular scarring (image 32 of axial series 3). PLEURAL SPACE: No pleural effusions or pneumothorax. OSSEOUS & SOFT TISSUE: Chronic anterior wedge compression fracture at T7. No acute or aggressive appe aring osseous lesions. ABDOMEN: Multiple cysts in the renal cortices bilaterally. Circumscribed low density lesions in the liver also present, largest in hepatic segment 7 measuring 2.2 cm. IMPRESSION: 1. Positive treatment response with marked interval decrease in size of the previously hypermetabolic mass in the right lower lobe, with only minimal residual scarlike mass measuring 13 x 5 mm. 2. Severe panlobular emphysema with interval development of parenchymal scarring and groundglass atte nuation that could reflect sequelae of infection or drug side effect. Electronically signed by: Clarissa Gutierres MD (09/11/2020 5:22 PM) [id number]
[2020-09-11 19:00] VITALS: BP 119/56
[2020-09-11] MEDS: ATORVASTATIN CALCIUM 20 MG TABLET PO SCH (20:32)
[2020-09-11] MEDS: ZOLPIDEM 5 MG TABLET. PO PRN (20:32)
[2020-09-11] MEDS: MIRTAZAPINE 15 MG TABLET PO SCH (20:33)
[2020-09-11] MEDS: QUEtiapine 25 MG TABLET. PO SCH (20:33)
[2020-09-11 23:00] VITALS: BP 136/62
[2020-09-12 02:54] VITALS: BP 97/59
[2020-09-12] MEDS: LEVOTHYROXINE 125 MCG TABLET PO SCH (05:53)
[2020-09-12 07:00] VITALS: BP 146/72
[2020-09-12] MEDS: DEXAMETHASONE 4 MG TABLET PO SCH (07:45)
[2020-09-12] MEDS: CALCIUM CARB/VIT D3 500/200 TABLET. PO SCH ×2 (07:45→16:52)
[2020-09-12] MEDS: IPRATROPIUM/ALBUTEROL 20/100mcg/INH INHALER. INH SCH ×4 (07:45→21:08)
[2020-09-12] MEDS: CARVEDILOL 3.125 MG TABLET. PO SCH ×2 (07:46→16:53)
[2020-09-12] MEDS: buPROPion SR 150 MG TABLET.SA PO SCH (08:59)
[2020-09-12] MEDS: ALPRAZolam 0.5 MG TABLET PO PRN ×3 (08:59→21:06)
[2020-09-12] MEDS: NYSTATIN 100,000 UNITS/ML 5 ML ORAL.SUSP. SWSW SCH ×4 (08:59→21:06)
[2020-09-12] MEDS: LACTOBACILLUS RHAMNOSUS GG 1 CAPSULE. PO SCH ×2 (08:59→21:06)
[2020-09-12] MEDS: RIVAROXABAN 15 MG TABLET. PO SCH (08:59)
[2020-09-12] MEDS: OMEGA-3 FATTY ACIDS/FISH OIL 1,000 MG CAPSULE. PO SCH (08:59)
[2020-09-12] MEDS: PSYLLIUM HUSK (SUGAR FREE) 1 PKT PACKET PO SCH (09:00)
[2020-09-12] MEDS: DOXYCYCLINE HYCLATE 100 MG TABLET PO SCH ×2 (09:00→21:06)
[2020-09-12] MEDS ORDERED: NON FORMULARY ITEM (Alendronate Sodium 1 TAB) PO SCH (09:00)
[2020-09-12] MEDS: MULTIVITAMIN with MINERAL TABLET. PO SCH (09:00)
[2020-09-12] MEDS: LOSARTAN POTASSIUM 50 MG TABLET. PO SCH (09:00)
[2020-09-12] MEDS: SPIRONOLACTONE 25 MG TABLET PO SCH (09:00)
[2020-09-12 09:22] LABS: ALBUMIN 2.6 g/dL (3.4-5.0); CALCIUM 9.2 mg/dL (8.5-10.1); CREATININE 1.5 mg/dL (0.6-1.0); GFR 33.6; PHOSPHORUS 3.7 mg/dL (2.6-4.7); POTASSIUM 4.9 mmol/L (3.5-5.1)
--- NOTE | 2020-09-12 10:42 | PDOC ---
PULMONARY PROGRESS NOTES DATE: 09/12/20 TIME: 10:37 Subjective PT. is on 3 liters N/C no increased SOB or cough afebrile Vitals Vital Signs Date Time Temp Pulse Resp B/P (MAP) Pulse Ox O2 Delivery O2 Flow Rate FiO2 09/12/20 09:00 95 146/72 09/12/20 07:58 Nasal Cannula 3.5 09/12/20 07:00 96.4 18 96 96.4 ROS: No Nausea, No Chest Pain, No Abdominal Pain, No Increase Cough General: Alert Lungs: Clear Cardiovascular: S1 Abdomen: Soft Neuro Exam: Alert Extremities: No Edema Skin: Warm Labs Laboratory Tests Test 09/11/20 09:10 09/12/20 08:05 White Blood Count 12.2 x10^3/uL (4.0-11.0) Red Blood Count 3.58 x10^6/uL (3.50-5.40) Hemoglobin 11.7 g/dL (12.0-15.5) Hematocrit 34.8 % (36.0-47.0) Mean Corpuscular Volume 97 fL (79-100) Mean Corpuscular Hemoglobin 33 pg (25-35) Mean Corpuscular Hemoglobin Concent 34 g/dL (31-37) Red Cell Distribution Width 14.1 % (11.5-14.5) Platelet Count 453 x10^3/uL (140-400) Neutrophils (%) (Auto) 87 % (31-73) Lymphocytes (%) (Auto) 7 % (24-48) Monocytes (%) (Auto) 6 % (0-9) Eosinophils (%) (Auto) 0 % (0-3) Basophils (%) (Auto) 0 % (0-3) Neutrophils # (Auto) 10.6 x10^3/uL (1.8-7.7) Lymphocytes # (Auto) 0.8 x10^3/uL (1.0-4.8) Monocytes # (Auto) 0.7 x10^3/uL (0.0-1.1) Eosinophils # (Auto) 0.0 x10^3/uL (0.0-0.7) Basophils # (Auto) 0.0 x10^3/uL (0.0-0.2) Sodium Level 138 mmol/L (136-145) 142 mmol/L (136-145) Potassium Level 4.5 mmol/L (3.5-5.1) 4.9 mmol/L (3.5-5.1) Chloride Level 102 mmol/L (98-107) 106 mmol/L (98-107) Carbon Dioxide Level 27 mmol/L (21-32) 26 mmol/L (21-32) Anion Gap 9 (6-14) 10 (6-14) Blood Urea Nitrogen 54 mg/dL (7-20) 49 mg/dL (7-20) Creatinine 1.7 mg/dL (0.6-1.0) 1.5 mg/dL (0.6-1.0) Estimated GFR (Cockcroft-Gault) 29.1 33.6 BUN/Creatinine Ratio 32 (6-20) Glucose Level 93 mg/dL (70-99) 88 mg/dL (70-99) Calcium Level 9.5 mg/dL (8.5-10.1) 9.2 mg/dL (8.5-10.1) Total Bilirubin 0.7 mg/dL (0.2-1.0) Aspartate Amino Transf (AST/SGOT) 20 U/L (15-37) Alanine Aminotransferase (ALT/SGPT) 28 U/L (14-59) Alkaline Phosphatase 78 U/L (46-116) Total Protein 6.3 g/dL (6.4-8.2) Albumin 2.7 g/dL (3.4-5.0) 2.6 g/dL (3.4-5.0) Albumin/Globulin Ratio 0.8 (1.0-1.7) Phosphorus Level 3.7 mg/dL (2.6-4.7) Laboratory Tests Test 09/12/20 08:05 Sodium Level 142 mmol/L (136-145) Potassium Level 4.9 mmol/L (3.5-5.1) Chloride Level 106 mmol/L (98-107) Carbon Dioxide Level 26 mmol/L (21-32) Anion Gap 10 (6-14) Blood Urea Nitrogen 49 mg/dL (7-20) Creatinine 1.5 mg/dL (0.6-1.0) Estimated GFR (Cockcroft-Gault) 33.6 Glucose Level 88 mg/dL (70-99) Calcium Level 9.2 mg/dL (8.5-10.1) Phosphorus Level 3.7 mg/dL (2.6-4.7) Albumin 2.6 g/dL (3.4-5.0) Medications Active Scripts Medications Dose Route/Sig Max Daily Dose Days Date Category Xarelto (Rivaroxaban) 15 Mg Tablet 1 Tab PO DAILY 30 09/05/20 Reported Metamucil (Psyllium Husk) 0.52 Gm Capsule 1 Cap PO DAILY 30 09/05/[address] 1,000 Mg Softgel ([place]-3S/Dha/Epa/Fish Oil) 1 Each Capsule.dr 1 Cap PO DAILY 30 09/05/20 Reported Macrodantin (Nitrofurantoin Macrocrystal) 50 Mg Capsule 1 Cap PO TWICE WEEKLY 30 09/05/20 Reported Multi Vitamin Daily (Multivitamin) 1 Each Tablet 1 Tab PO DAILY 30 09/05/20 Reported Irbesartan 300 Mg Tablet 300 Mg PO DAILY 09/05/20 Reported Estrace (Estradiol) 42.5 Gm Cream.appl 1 Gm VG TWICE WEEKLY 09/05/20 Reported Mohan-Citrate Plus Vitamin D Tab (Calcium Citrate/Vitamin D2) 1 Each Tablet 1 Tab PO BID 5 09/05/20 Reported Alendronate Sodium 70 Mg Tablet 1 Tab PO WEEKLY 09/05/20 Reported Synthroid (Levothyroxine Sodium) 125 Mcg Tablet 125 Mcg PO DAILYAC 09/05/20 Reported Quetiapine Fumarate 50 Mg Tablet 50 Mg PO QHS 09/05/20 Reported Spironolactone 25 Mg Tablet 12.5 Mg PO DAILY 09/05/20 Reported Bupropion Hcl Sr (Bupropion Hcl) 150 Mg Tablet.er 300 Mg PO DAILY 09/05/20 Reported Alprazolam 1 Mg Tablet 1 Mg PO TID 09/05/20 Reported Carvedilol 6.25 Mg Tablet 3.125 Mg PO BIDWMEALS 09/05/20 Reported Atorvastatin Calcium 20 Mg Tablet 20 Mg PO QHS 09/05/[address] IMPRESSION: 1. Positive treatment response with marked interval decrease in size of the previously hypermetabolic mass in the right lower lobe, with only minimal residual scarlike mass measuring 13 x 5 mm. 2. Severe panlobular emphysema with interval development of parenchymal scarring and groundglass attenuation that could reflect sequelae of infection or drug side effect. Impression . IMPRESSION: 1. Acute hypoxic respiratory failure in a patient with severe underlying chronic obstructive pulmonary disease. The respiratory failure is contributed by development of pneumonia, likely gram-negative, for which she has been treated since 08/30/2020. 2. Abnormal chest x-ray with bilateral infiltrates. Overall, infiltrates have been improving on the right lung, but more prominent on the left base and would need to be empirically treated with antibiotics. 3. Previous PET positive spiculated nodule in the right lower lobe, which was about 2.5 cm. She declined any invasive treatment and was referred to [facility] and did empiric radiation, which ended in December. She has not had any followup scans since then. Some of the radiographic changes could be related to some radiation-induced scarring as well. 4. History of chronic anticoagulation. 5. FARRAH Plan . RECOMMENDATIONS: Continue Supplemental oxygen baseline 2 liters N/C, now on 3 liters N/C Continue ABX, on DOXY Continue steroids for covid-19 infection, will need full 10 day course, started on 09/06/20- can D/C on 09/16/20 Completed full course of remdesivir CT chest pending --- reviewed Right Mass is reduced in size Monitor renal function Social work for D/C planning, planned to go to SNF VS. rehab DVT/GI PPX D/W RN Pt. is DNR Ok to D/C from our standpoint ROSA RAM MD Sep 12, 2020 10:42
[2020-09-12 10:57] VITALS: BP 132/63
--- NOTE | 2020-09-12 12:49 | PDOC ---
PROGRESS NOTES Date of Service: DATE: 09/12/20 TIME: 12:48 Chief Complaint Chief Complaint DISCHARGE DX Acute hypoxic respiratory failure - due to COVID 19 with secondary bacterial pneumonia as well. Cont antibiotics, steroids, wean O2 as tolerated COVID 19 with pneumonia -continue steroids and remdesivir. Acute hyponatremia - resolving Pneumonia - likely gram negative with structural lung disease. Will cont antibiotics Diarrhea - likely COVID related. infectious w/u negative Sepsis - from COVID 19, will monitor COPD - moderate-severe. Will cont inhalers MDI with steroids, wean O2 as tolerated., REMAINS 5 LITERS NC O2 PLAN FEN - General diet PPX - lovenox DNR/DNI Dispo - inpatient Continue ABX, on DOXY Continue steroids for covid-19 infection, will need full 10 day course, started on 09/06/20- can D/C on 09/16/20 Completed full course of remdesivir CT chest pending --- reviewed Right Mass is reduced in size Monitor renal function Social work for D/C planning, planned to go to SNF DVT/GI PPX D/C PLANNING 37 MIN History of Present Illness History of Present Illness Ms Hamm is a 79-year-old female w/ PMHx Anxiety, Arthritis, CHF, COPD, High Cholesterol, Hypertension, rheumatic fever, and GLORY on 2L NCO2 nightly who was transferred from [place] for worsening O2 status under treatment for COVID 19. She initially presented for weakness, fatigue, shortness of breath, and decreased p.o. intake. She has been having diarrhea for about 6 weeks and was hospitalized for the same prior. Patient was also hypoxic on room air satting 84%. Patient has a history of COPD and uses oxygen at night but not during the day. She was started on steroids by her primary care physician and had 1 dose prior to admission. Patient states she has had a productive cough denies any nausea and vomiting. She was exposed to Covid by her daughter who came over for . Her daughter and had a test performed prior to the holiday, got the positive results after being at her mother's for the holiday. She denies any loss of taste or smell but says she lives alone and because she has not felt well is lacking motivation to get out and make food. States there is no blood i n her stools no tarry looking stools. Chest radiograph with bilateral pneumonia For her diarrhea Michell's she had a C. difficile and Salmonella Shigella test negative negative for parasites. Her test for COVID-19 on 1230 came back positive and she was initiated on remdesivir on 09/04/2020. She also had an ABG at that time and while on a 40% FiO2 pH 74 PaCO2 42 PaO2 71. Repeat chest x-ray on 09/04/2020 showed improvement in her right basilar infiltrate but left infiltrate as well and emphysema. Labs prior to discharge to [facility] WBC 1.3, Hb 8.6, platelets 231, NA 134, K4.5, BUN 19, CR 1.1, glucose 126, calcium 6.5. EKG was Sinus rhythm, wide complex with left axis deviation, intraventricular block. No ST elevation or depression. 09/07: Afebrile overnight. 10 L nasal cannula O2. She has had difficulty sleeping. Still feeling weak and very little appetite. Still short of breath with cough that is productive today. No chest pain.' 09/08: Afebrile overnight. Out of 8 L nasal cannula O2. Slept a little better but still with difficulty sleeping. Appetite is still low. Still short of breath cough is still productive. No chest pain. No diarrhea. Afebrile. On 6 liters nasal cannula O2. Slept significantly better and appetite is increased. Of breath with cough. Still feeling very weak. No chest pain no diarrhea. Plan: 6 min walk to modify her home O2 F/u therapy recs home health vs SNF D/c in next 24-48 hours Vitals Vitals Vital Signs Date Time Temp Pulse Resp B/P (MAP) Pulse Ox O2 Delivery O2 Flow Rate FiO2 09/12/20 10:57 97.2 94 18 132/63 (86) 94 Nasal Cannula 3.0 97.2 Physical Exam General: Alert, Oriented X3, Cooperative, No acute distress Heart: Regular rate Lungs: Clear Abdomen: Normal bowel sounds, Soft, No tenderness, No hepatosplenomegaly, No masses Extremities: No clubbing, No cyanosis, No edema, Normal pulses, No tenderness/swelling Skin: No rashes, No breakdown, No significant lesion Labs LABS Laboratory Tests Test 09/12/20 08:05 Sodium Level 142 mmol/L (136-145) Potassium Level 4.9 mmol/L (3.5-5.1) Chloride Level 106 mmol/L (98-107) Carbon Dioxide Level 26 mmol/L (21-32) Anion Gap 10 (6-14) Blood Urea Nitrogen 49 mg/dL (7-20) Creatinine 1.5 mg/dL (0.6-1.0) Estimated GFR (Cockcroft-Gault) 33.6 Glucose Level 88 mg/dL (70-99) Calcium Level 9.2 mg/dL (8.5-10.1) Phosphorus Level 3.7 mg/dL (2.6-4.7) Albumin 2.6 g/dL (3.4-5.0) Comment Review of Relevant I have reviewed the following items eric (where applicable) has been applied. Labs Laboratory Tests Test 09/11/20 09:10 09/12/20 08:05 White Blood Count 12.2 x10^3/uL (4.0-11.0) Red Blood Count 3.58 x10^6/uL (3.50-5.40) Hemoglobin 11.7 g/dL (12.0-15.5) Hematocrit 34.8 % (36.0-47.0) Mean Corpuscular Volume 97 fL (79-100) Mean Corpuscular Hemoglobin 33 pg (25-35) Mean Corpuscular Hemoglobin Concent 34 g/dL (31-37) Red Cell Distribution Width 14.1 % (11.5-14.5) Platelet Count 453 x10^3/uL (140-400) Neutrophils (%) (Auto) 87 % (31-73) Lymphocytes (%) (Auto) 7 % (24-48) Monocytes (%) (Auto) 6 % (0-9) Eosinophils (%) (Auto) 0 % (0-3) Basophils (%) (Auto) 0 % (0-3) Neutrophils # (Auto) 10.6 x10^3/uL (1.8-7.7) Lymphocytes # (Auto) 0.8 x10^3/uL (1.0-4.8) Monocytes # (Auto) 0.7 x10^3/uL (0.0-1.1) Eosinophils # (Auto) 0.0 x10^3/uL (0.0-0.7) Basophils # (Auto) 0.0 x10^3/uL (0.0-0.2) Sodium Level 138 mmol/L (136-145) 142 mmol/L (136-145) Potassium Level 4.5 mmol/L (3.5-5.1) 4.9 mmol/L (3.5-5.1) Chloride Level 102 mmol/L (98-107) 106 mmol/L (98-107) Carbon Dioxide Level 27 mmol/L (21-32) 26 mmol/L (21-32) Anion Gap 9 (6-14) 10 (6-14) Blood Urea Nitrogen 54 mg/dL (7-20) 49 mg/dL (7-20) Creatinine 1.7 mg/dL (0.6-1.0) 1.5 mg/dL (0.6-1.0) Estimated GFR (Cockcroft-Gault) 29.1 33.6 BUN/Creatinine Ratio 32 (6-20) Glucose Level 93 mg/dL (70-99) 88 mg/dL (70-99) Calcium Level 9.5 mg/dL (8.5-10.1) 9.2 mg/dL (8.5-10.1) Total Bilirubin 0.7 mg/dL (0.2-1.0) Aspartate Amino Transf (AST/SGOT) 20 U/L (15-37) Alanine Aminotransferase (ALT/SGPT) 28 U/L (14-59) Alkaline Phosphatase 78 U/L (46-116) Total Protein 6.3 g/dL (6.4-8.2) Albumin 2.7 g/dL (3.4-5.0) 2.6 g/dL (3.4-5.0) Albumin/Globulin Ratio 0.8 (1.0-1.7) Phosphorus Level 3.7 mg/dL (2.6-4.7) Laboratory Tests Test 09/12/20 08:05 Sodium Level 142 mmol/L (136-145) Potassium Level 4.9 mmol/L (3.5-5.1) Chloride Level 106 mmol/L (98-107) Carbon Dioxide Level 26 mmol/L (21-32) Anion Gap 10 (6-14) Blood Urea Nitrogen 49 mg/dL (7-20) Creatinine 1.5 mg/dL (0.6-1.0) Estimated GFR (Cockcroft-Gault) 33.6 Glucose Level 88 mg/dL (70-99) Calcium Level 9.2 mg/dL (8.5-10.1) Phosphorus Level 3.7 mg/dL (2.6-4.7) Albumin 2.6 g/dL (3.4-5.0) Medications Current Medications Alprazolam (Xanax) 1 mg TID PO Last administered on 09/05/20at 22:26; Start 09/05/20 at 21:00; Stop 09/06/20 at 08:14; Status DC Atorvastatin Calcium (Lipitor) 20 mg QHS PO Last administered on 09/11/20at 20:32; Start 09/05/20 at 21:00 Bupropion HCl (Wellbutrin Sr) 300 mg DAILY PO Last administered on 09/12/20at 08:59; Start 09/06/20 at 09:00 Carvedilol (Coreg) 3.125 mg BIDWMEALS PO Last administered on 09/12/20at 07:46; Start 09/06/20 at 08:00 Estradiol (Estrace) 1 angelica QMTH VG Last administered on 09/10/20at 18:19; Start 09/06/20 at 16:00 Levothyroxine Sodium (Synthroid) 125 mcg DAILY06 PO Last administered on 09/12/20 05:53; Start 09/06/20 at 06:00 Rivaroxaban (Xarelto) 15 mg DAILY PO Last administered on 09/12/20 08:59; Start 09/06/20 at 09:00 Spironolactone (Aldactone) 12.5 mg DAILY PO Last administered on 09/12/20at 09:00; Start 09/06/20 at 09:00 Non-Formulary Medication (Alendronate Sodium ) 1 tab WEEKLY PO ; Start 09/12/20 at 09:00; Status UNV Calcium/Vitamin D (Oscal D 500mg/ 200uts) 1 tab BIDWMEALS PO Last administered on 09/12/20 07:45; Start 09/06/20 at 08:00 Losartan Potassium (Cozaar) 100 mg DAILY PO Last administered on 09/12/20 09:00; Start 09/06/20 at 09:00 Multivitamins (Thera M Plus) 1 tab DAILY PO Last administered on 09/12/20at 09:00; Start 09/06/20 at 09:00 Nitrofurantoin Macrocrystals (Macrobid) 100 mg SuTh PO Last administered on 09/09/20 09:03; Start 09/06/20 at 09:00 Fish Oil (Fish Oil) 1,000 mg DAILY PO Last administered on 09/12/20 08:59; Start 09/06/20 at 09:00 Psyllium Hydrophilic Mucilloid (Metamucil Fiber Packet) 1 pkt DAILY PO Last administered on 09/10/20 08:45; Start 09/06/20 at 09:00 Quetiapine Fumarate (SEROquel) 50 mg QHS PO Last administered on 09/11/20 20:33; Start 09/05/20 at 21:00 Dexamethasone Sodium Phosphate (Decadron) 4 mg Q6HRS IVP Last administered on 09/09/20 11:33; Start 09/06/20 at 00:00; Stop 09/09/20 at 13:30; Status DC Albuterol/ Ipratropium (Combivent Respimat 20-100 Mcg) 1 puff RTQID INH Last administered on 09/12/20 12:09; Start 09/06/20 at 08:00 Lactobacillus Rhamnosus (Culturelle) 1 cap BID PO Last administered on 09/12/20 08:59; Start 09/05/20 at 21:30 Loperamide HCl (Imodium) 2 mg PRN Q15MIN PRN PO DIARRHEA Last administered on 09/08/20 20:21; Start 09/05/20 at 21:15 Guaifenesin (Mucinex) 600 mg BID PO Last administered on 09/12/20 08:59; Start 09/05/20 at 21:30 Info (Anti-Coagulation Monitoring By Pharmacy) 1 each PRN DAILY PRN MC SEE COMMENTS Last administered on 09/11/20at 15:48; Start 09/05/20 at 21:30 Azithromycin 500 mg/Sodium Chloride 250 ml @ 250 mls/hr Q24H IV Last administered on 09/09/20at 12:37; Start 09/06/20 at 13:00; Stop 09/09/20 at 13:30; Status DC Enoxaparin Sodium (Lovenox 40mg Syringe) 40 mg Q24H SQ ; Start 09/06/20 at 12:00; Status UNV Ceftriaxone Sodium (Rocephin) 1 gm Q24H IVP Last administered on 09/09/20at 11:34; Start 09/06/20 at 12:00; Stop 09/09/20 at 13:30; Status DC Remdesivir 100 mg/ Sodium Chloride 230 ml @ 460 mls/hr Q24H IV Last administered on 09/08/20at 09:55; Start 09/06/20 at 09:00; Stop 09/08/20 at 09:29; Status DC Acetaminophen (Tylenol) 650 mg PRN Q6HRS PRN PO MILD PAIN / TEMP > 100.3'F Last administered on 09/11/20at 20:40; Start 09/06/20 at 00:45 Alprazolam (Xanax) 0.5 mg PRN TID PRN PO anxiety Last administered on 09/12/20 08:59; Start 09/06/20 at 08:30 Amino Acids/ Glycerin/ Electrolytes 1,000 ml @ 80 mls/hr [id number] IV Last administered on 09/09/20at 00:14; Start 09/06/20 at 12:15; Stop 09/09/20 at 13:30; Status DC Zolpidem Tartrate (Ambien) 5 mg PRN QHS PRN PO INSOMNIA Last administered on 09/11/20 20:32; Start 09/07/20 at 21:00 Mirtazapine (Remeron) 15 mg QHS PO Last administered on 09/11/20 20:33; Start 09/08/20 at 21:00 Dexamethasone (Decadron) 4 mg [id number] PO Last administered on 09/12/20at 07:45; Start 09/10/20 at 08:00; Stop 09/20/20 at 07:59 Doxycycline Hyclate (Vibra-Tab) 100 mg BID PO Last administered on 09/12/20at 09:00; Start 09/09/20 at 21:00; Stop 09/14/20 at 21:01 Nystatin (Nystatin Oral Susp) 5 ml [id number] Last administered on 09/12/20at 08:59; Start 09/10/20 at 13:00 Sodium Chloride 1,000 ml @ 100 mls/hr 1X ONCE IV Last administered on 09/11/20at 10:29; Start 09/11/20 at 09:45; Stop 09/11/20 at 19:44; Status DC Active Scripts Active Reported Xarelto (Rivaroxaban) 15 Mg Tablet 1 Tab PO DAILY 30 Days Metamucil (Psyllium Husk) 0.52 Gm Capsule 1 Cap PO DAILY [address] 1,000 Mg Softgel ([place]-3S/Dha/Epa/Fish Oil) 1 Each Capsule.dr 1 Cap PO DAILY 30 Days Macrodantin (Nitrofurantoin Macrocrystal) 50 Mg Capsule 1 Cap PO TWICE WEEKLY 30 Days Multi Vitamin Daily (Multivitamin) 1 Each Tablet 1 Tab PO DAILY 30 Days Irbesartan 300 Mg Tablet 300 Mg PO DAILY Estrace (Estradiol) 42.5 Gm Cream.appl 1 Gm VG TWICE WEEKLY Mohan-Citrate Plus Vitamin D Tab (Calcium Citrate/Vitamin D2) 1 Each Tablet 1 Tab PO BID 5 Days Alendronate Sodium 70 Mg Tablet 1 Tab PO WEEKLY Synthroid (Levothyroxine Sodium) 125 Mcg Tablet 125 Mcg PO DAILYAC Quetiapine Fumarate 50 Mg Tablet 50 Mg PO QHS Spironolactone 25 Mg Tablet 12.5 Mg PO DAILY Bupropion Hcl Sr (Bupropion Hcl) 150 Mg Tablet.er 300 Mg PO DAILY Alprazolam 1 Mg Tablet 1 Mg PO TID Carvedilol 6.25 Mg Tablet 3.125 Mg PO BIDWMEALS Atorvastatin Calcium 20 Mg Tablet 20 Mg PO QHS Vitals/I & O Vital Sign - Last 24 Hours 09/11/20 09/11/20 09/11/20 09/11/20 15:14 16:00 19:00 19:05 Temp 96.0 98.0 96.0 98.0 Pulse 109 109 96 Resp 18 B/P (MAP) 136/80 (98) 136/80 119/56 (77) Pulse Ox 91 94 O2 Delivery Nasal Cannula Nasal Cannula Nasal Cannula O2 Flow Rate 5.0 5.0 2.5 09/11/20 09/12/20 09/12/20 09/12/20 23:00 02:54 07:00 07:46 Temp 98.0 97.5 96.4 98.0 97.5 96.4 Pulse 107 92 95 95 Resp 20 17 18 B/P (MAP) 136/62 (86) 97/59 (72) 146/72 (96) 146/72 Pulse Ox 92 99 96 O2 Delivery Nasal Cannula Nasal Cannula Nasal Cannula O2 Flow Rate 2.5 2.5 3.0 09/12/20 09/12/20 09/12/20 07:58 09:00 10:57 Temp 97.2 97.2 Pulse 95 94 Resp 18 B/P (MAP) 146/72 132/63 (86) Pulse Ox 94 O2 Delivery Nasal Cannula Nasal Cannula O2 Flow Rate 3.5 3.0 Intake and Output 09/11/20 09/11/20 09/12/20 15:00 23:00 07:00 Intake Total 300 ml 1000 ml Output Total 3 ml Balance 297 ml 1000 ml Justicifation of Admission Dx: Justifications for Admission: Justification of Admission Dx: Yes Comminuty Aquired Pneumonia: Hypoxemia LOUIE OH MD Sep 12, 2020 12:49
--- NOTE | 2020-09-12 12:53 | PDOC3 ---
Discharge Summary Date of Admission: Sep 06, 2020 Date of Discharge: Sep 12, 2020 Follow-Up: 1-2 days Admitting Diagnosis comment: Chief Complaint DISCHARGE DX Acute hypoxic respiratory failure - due to COVID 19 with secondary bacterial pneumonia as well. Cont antibiotics, steroids, wean O2 as tolerated COVID 19 with pneumonia -continue steroids and remdesivir. Acute hyponatremia - resolving Pneumonia - likely gram negative with structural lung disease. Will cont antibiotics Diarrhea - likely COVID related. infectious w/u negative Sepsis - from COVID 19, will monitor COPD - moderate-severe. Will cont inhalers MDI with steroids, wean O2 as tolerated., REMAINS 5 LITERS NC O2 PLAN FEN - General diet PPX - lovenox DNR/DNI Dispo - inpatient Continue ABX, on DOXY Continue steroids for covid-19 infection, will need full 10 day course, started on 09/06/20- can D/C on 09/16/20 Completed full course of remdesivir CT chest --- reviewed Right Mass is reduced in size Monitor renal function Social work for D/C planning, planned to go to SNF DVT/GI PPX D/C PLANNING 37 MIN History of Present Illness History of Present Illness Ms Hamm is a 79-year-old female w/ PMHx Anxiety, Arthritis, CHF, COPD, High Cholesterol, Hypertension, rheumatic fever, and GLORY on 2L NCO2 nightly who was transferred from [facility] for worsening O2 status under treatment for COVID 19. She initially presented for weakness, fatigue, shortness of breath, and decreased p.o. intake. She has been having diarrhea for about 6 weeks and was hospitalized for the same prior. Patient was also hypoxic on room air satting 84%. Patient has a history of COPD and uses oxygen at night but not during the day. She was started on steroids by her primary care physician and had 1 dose prior to admission. Patient states she has had a productive cough denies any nausea and vomiting. She was exposed to Covid by her daughter who came over for . Her daughter and had a test performed prior to the holiday, got the positive results after being at her mother's for the holiday. She denies any loss of taste or smell but says she lives alone and because she has not felt well is lacking motivation to get out and make food. States there is no blood in her stools no tarry looking stools. Chest radiograph with bilateral pneumonia For her diarrhea [facility]stan's she had a C. difficile and Salmonella Shigella test negative negative for parasites. Her test for COVID-19 on 1230 came back positive and she was initiated on remdesivir on 09/04/2020. She also had an ABG at that time and while on a 40% FiO2 pH 74 PaCO2 42 PaO2 71. Repeat chest x-ray on 09/04/2020 showed improvement in her right basilar infiltrate but left infiltrate as well and emphysema. Labs prior to discharge to [facility] WBC 1.3, Hb 8.6, platelets 231, NA 134, K4.5, BUN 19, CR 1.1, glucose 126, calcium 6.5. EKG was Sinus rhythm, wide complex with left axis deviation, intraventricular block. No ST elevation or depression. 09/07: Afebrile overnight. 10 L nasal cannula O2. She has had difficulty sleeping. Still feeling weak and very little appetite. Still short of breath with cough that is productive today. No chest pain.' 09/08: Afebrile overnight. Out of 8 L nasal cannula O2. Slept a little better but still with difficulty sleeping. Appetite is still low. Still short of breath cough is still productive. No chest pain. No diarrhea. Afebrile. On 6 liters nasal cannula O2. Slept significantly better and appetite is increased. Of breath with cough. Still feeling very weak. No chest pain no diarrhea. Plan: 6 min walk to modify her home O2 F/u therapy recs home health vs SNF D/c in next 24-48 hours Vitals Vitals Vital Signs Date Time Temp Pulse Resp B/P (MAP) Pulse Ox O2 Delivery O2 Flow Rate FiO2 09/12/20 10:57 97.2 94 18 132/63 (86) 94 Nasal Cannula 3.0 97.2 Physical Exam General: Alert, Oriented X3, Cooperative, No acute distress Heart: Regular rate Lungs: Clear Abdomen: Normal bowel sounds, Soft, No tenderness, No hepatosplenomegaly, No masses Extremities: No clubbing, No cyanosis, No edema, Normal pulses, No tenderness/swelling Skin: No rashes, No breakdown, No significant lesion Brief Hospital Course Ms. Hamm is a 79 old [sex] who presented with [ COVID 19 PNEUMONIA] CONDITION AT DISCHARGE: Improved Discharge Medications Current Medications Alprazolam (Xanax) 1 mg TID PO Last administered on 09/05/20at 22:26; Start 09/05/20 at 21:00; Stop 09/06/20 at 08:14; Status DC Atorvastatin Calcium (Lipitor) 20 mg QHS PO Last administered on 09/11/20at 20:32; Start 09/05/20 at 21:00 Bupropion HCl (Wellbutrin Sr) 300 mg DAILY PO Last administered on 09/12/20at 08:59; Start 09/06/20 at 09:00 Carvedilol (Coreg) 3.125 mg BIDWMEALS PO Last administered on 09/12/20 07:46; Start 09/06/20 at 08:00 Estradiol (Estrace) 1 angelica QMTH VG Last administered on 09/10/20at 18:19; Start 09/06/20 at 16:00 Levothyroxine Sodium (Synthroid) 125 mcg DAILY06 PO Last administered on 09/12/20at 05:53; Start 09/06/20 at 06:00 Rivaroxaban (Xarelto) 15 mg DAILY PO Last administered on 09/12/20at 08:59; Start 09/06/20 at 09:00 Spironolactone (Aldactone) 12.5 mg DAILY PO Last administered on 09/12/20 09:00; Start 09/06/20 at 09:00 Non-Formulary Medication (Alendronate Sodium ) 1 tab WEEKLY PO ; Start 09/12/20 at 09:00; Status UNV Calcium/Vitamin D (Oscal D 500mg/ 200uts) 1 tab BIDWMEALS PO Last administered on 09/12/20 07:45; Start 09/06/20 at 08:00 Losartan Potassium (Cozaar) 100 mg DAILY PO Last administered on 09/12/20 09:00; Start 09/06/20 at 09:00 Multivitamins (Thera M Plus) 1 tab DAILY PO Last administered on 09/12/20 09:00; Start 09/06/20 at 09:00 Nitrofurantoin Macrocrystals (Macrobid) 100 mg SuTh PO Last administered on 09/09/20 09:03; Start 09/06/20 at 09:00 Fish Oil (Fish Oil) 1,000 mg DAILY PO Last administered on 09/12/20 08:59; Start 09/06/20 at 09:00 Psyllium Hydrophilic Mucilloid (Metamucil Fiber Packet) 1 pkt DAILY PO Last administered on 09/10/20 08:45; Start 09/06/20 at 09:00 Quetiapine Fumarate (SEROquel) 50 mg QHS PO Last administered on 09/11/20 20:33; Start 09/05/20 at 21:00 Dexamethasone Sodium Phosphate (Decadron) 4 mg Q6HRS IVP Last administered on 09/09/20 11:33; Start 09/06/20 at 00:00; Stop 09/09/20 at 13:30; Status DC Albuterol/ Ipratropium (Combivent Respimat 20-100 Mcg) 1 puff RTQID INH Last administered on 09/12/20 12:09; Start 09/06/20 at 08:00 Lactobacillus Rhamnosus (Culturelle) 1 cap BID PO Last administered on 09/12/20 08:59; Start 09/05/20 at 21:30 Loperamide HCl (Imodium) 2 mg PRN Q15MIN PRN PO DIARRHEA Last administered on 09/08/20 20:21; Start 09/05/20 at 21:15 Guaifenesin (Mucinex) 600 mg BID PO Last administered on 09/12/20 08:59; Start 09/05/20 at 21:30 Info (Anti-Coagulation Monitoring By Pharmacy) 1 each PRN DAILY PRN MC SEE COMMENTS Last administered on 09/11/20 15:48; Start 09/05/20 at 21:30 Azithromycin 500 mg/Sodium Chloride 250 ml @ 250 mls/hr Q24H IV Last administered on 09/09/20at 12:37; Start 09/06/20 at 13:00; Stop 09/09/20 at 13:30; Status DC Enoxaparin Sodium (Lovenox 40mg Syringe) 40 mg Q24H SQ ; Start 09/06/20 at 12:00; Status UNV Ceftriaxone Sodium (Rocephin) 1 gm Q24H IVP Last administered on 09/09/20at 11:34; Start 09/06/20 at 12:00; Stop 09/09/20 at 13:30; Status DC Remdesivir 100 mg/ Sodium Chloride 230 ml @ 460 mls/hr Q24H IV Last administer ed on 09/08/20at 09:55; Start 09/06/20 at 09:00; Stop 09/08/20 at 09:29; Status DC Acetaminophen (Tylenol) 650 mg PRN Q6HRS PRN PO MILD PAIN / TEMP > 100.3'F Last administered on 09/11/20at 20:40; Start 09/06/20 at 00:45 Alprazolam (Xanax) 0.5 mg PRN TID PRN PO anxiety Last administered on 09/12/20at 08:59; Start 09/06/20 at 08:30 Amino Acids/ Glycerin/ Electrolytes 1,000 ml @ 80 mls/hr [id number] IV Last administered on 09/09/20at 00:14; Start 09/06/20 at 12:15; Stop 09/09/20 at 13:30; Status DC Zolpidem Tartrate (Ambien) 5 mg PRN QHS PRN PO INSOMNIA Last administered on 09/11/20at 20:32; Start 09/07/20 at 21:00 Mirtazapine (Remeron) 15 mg QHS PO Last administered on 09/11/20at 20:33; Start 09/08/20 at 21:00 Dexamethasone (Decadron) 4 mg DAILYWBKFT PO Last administered on 09/12/20at 07:45; Start 09/10/20 at 08:00; Stop 09/20/20 at 07:59 Doxycycline Hyclate (Vibra-Tab) 100 mg BID PO Last administered on 09/12/20at 09:00; Start 09/09/20 at 21:00; Stop 09/14/20 at 21:01 Nystatin (Nystatin Oral Susp) 5 ml [id number] Last administered on 09/12/20at 08:59; Start 09/10/20 at 13:00 Sodium Chloride 1,000 ml @ 100 mls/hr 1X ONCE IV Last administered on 09/11/20at 10:29; Start 09/11/20 at 09:45; Stop 09/11/20 at 19:44; Status DC Active Scripts Active Reported Xarelto (Rivaroxaban) 15 Mg Tablet 1 Tab PO DAILY 30 Days Metamucil (Psyllium Husk) 0.52 Gm Capsule 1 Cap PO DAILY [address] 1,000 Mg Softgel ([place]-3S/Dha/Epa/Fish Oil) 1 Each Capsule.dr 1 Cap PO DAILY 30 Days Macrodantin (Nitrofurantoin Macrocrystal) 50 Mg Capsule 1 Cap PO TWICE WEEKLY 30 Days Multi Vitamin Daily (Multivitamin) 1 Each Tablet 1 Tab PO DAILY 30 Days Irbesartan 300 Mg Tablet 300 Mg PO DAILY Estrace (Estradiol) 42.5 Gm Cream.appl 1 Gm VG TWICE WEEKLY Mohan-Citrate Plus Vitamin D Tab (Calcium Citrate/Vitamin D2) 1 Each Tablet 1 Tab PO BID 5 Days Alendronate Sodium 70 Mg Tablet 1 Tab PO WEEKLY Synthroid (Levothyroxine Sodium) 125 Mcg Tablet 125 Mcg PO DAILYAC Quetiapine Fumarate 50 Mg Tablet 50 Mg PO QHS Spironolactone 25 Mg Tablet 12.5 Mg PO DAILY Bupropion Hcl Sr (Bupropion Hcl) 150 Mg Tablet.er 300 Mg PO DAILY Alprazolam 1 Mg Tablet 1 Mg PO TID Carvedilol 6.25 Mg Tablet 3.125 Mg PO BIDWMEALS Atorvastatin Calcium 20 Mg Tablet 20 Mg PO QHS Vital Signs Vital Signs Date Time Temp Pulse Resp B/P (MAP) Pulse Ox O2 Delivery O2 Flow Rate FiO2 09/12/20 10:57 97.2 94 18 132/63 (86) 94 Nasal Cannula 3.0 97.2 Labs Laboratory Tests Test 09/11/20 09:10 09/12/20 08:05 White Blood Count 12.2 x10^3/uL (4.0-11.0) Red Blood Count 3.58 x10^6/uL (3.50-5.40) Hemoglobin 11.7 g/dL (12.0-15.5) Hematocrit 34.8 % (36.0-47.0) Mean Corpuscular Volume 97 fL (79-100) Mean Corpuscular Hemoglobin 33 pg (25-35) Mean Corpuscular Hemoglobin Concent 34 g/dL (31-37) Red Cell Distribution Width 14.1 % (11.5-14.5) Platelet Count 453 x10^3/uL (140-400) Neutrophils (%) (Auto) 87 % (31-73) Lymphocytes (%) (Auto) 7 % (24-48) Monocytes (%) (Auto) 6 % (0-9) Eosinophils (%) (Auto) 0 % (0-3) Basophils (%) (Auto) 0 % (0-3) Neutrophils # (Auto) 10.6 x10^3/uL (1.8-7.7) Lymphocytes # (Auto) 0.8 x10^3/uL (1.0-4.8) Monocytes # (Auto) 0.7 x10^3/uL (0.0-1.1) Eosinophils # (Auto) 0.0 x10^3/uL (0.0-0.7) Basophils # (Auto) 0.0 x10^3/uL (0.0-0.2) Sodium Level 138 mmol/L (136-145) 142 mmol/L (136-145) Potassium Level 4.5 mmol/L (3.5-5.1) 4.9 mmol/L (3.5-5.1) Chloride Level 102 mmol/L (98-107) 106 mmol/L (98-107) Carbon Dioxide Level 27 mmol/L (21-32) 26 mmol/L (21-32) Anion Gap 9 (6-14) 10 (6-14) Blood Urea Nitrogen 54 mg/dL (7-20) 49 mg/dL (7-20) Creatinine 1.7 mg/dL (0.6-1.0) 1.5 mg/dL (0.6-1.0) Estimated GFR (Cockcroft-Gault) 29.1 33.6 BUN/Creatinine Ratio 32 (6-20) Glucose Level 93 mg/dL (70-99) 88 mg/dL (70-99) Calcium Level 9.5 mg/dL (8.5-10.1) 9.2 mg/dL (8.5-10.1) Total Bilirubin 0.7 mg/dL (0.2-1.0) Aspartate Amino Transf (AST/SGOT) 20 U/L (15-37) Alanine Aminotransferase (ALT/SGPT) 28 U/L (14-59) Alkaline Phosphatase 78 U/L (46-116) Total Protein 6.3 g/dL (6.4-8.2) Albumin 2.7 g/dL (3.4-5.0) 2.6 g/dL (3.4-5.0) Albumin/Globulin Ratio 0.8 (1.0-1.7) Phosphorus Level 3.7 mg/dL (2.6-4.7) Laboratory Tests Test 09/12/20 08:05 Sodium Level 142 mmol/L (136-145) Potassium Level 4.9 mmol/L (3.5-5.1) Chloride Level 106 mmol/L (98-107) Carbon Dioxide Level 26 mmol/L (21-32) Anion Gap 10 (6-14) Blood Urea Nitrogen 49 mg/dL (7-20) Creatinine 1.5 mg/dL (0.6-1.0) Estimated GFR (Cockcroft-Gault) 33.6 Glucose Level 88 mg/dL (70-99) Calcium Level 9.2 mg/dL (8.5-10.1) Phosphorus Level 3.7 mg/dL (2.6-4.7) Albumin 2.6 g/dL (3.4-5.0) Allergies Allergies Coded Allergies Type Severity Reaction Last Updated Verified amoxicillin Allergy Intermediate 09/05/20 Yes clavulanic acid Allergy Intermediate 09/05/20 Yes fenofibrate Allergy Intermediate 09/05/20 Yes morphine Allergy Intermediate 09/05/20 Yes simvastatin Allergy Intermediate 09/05/20 Yes sulfamethoxazole Allergy Intermediate 09/05/20 Yes trimethoprim Allergy Intermediate 09/05/20 Yes Disposition/Orders: Other (D/C TO SNF) Justicifation of Admission Dx: Justifications for Admission: Justification of Admission Dx: Yes Comminuty Aquired Pneumonia: Hypoxemia LOUIE OH MD Sep 12, 2020 12:53
[2020-09-12] MEDS ORDERED: ACET325T9 PO (12:58)
[2020-09-12] MEDS ORDERED: IPRA4AER INH (12:58)
[2020-09-12] MEDS ORDERED: MIRT-7 PO (12:58)
[2020-09-12] MEDS ORDERED: LACT1CAP19 PO (12:58)
[2020-09-12] MEDS ORDERED: DEXA4TAB63 PO (12:58)
[2020-09-12] MEDS ORDERED: DOXY100T PO (12:58)
[2020-09-12] MEDS ORDERED: NYST100054 SWSW (12:58)
[2020-09-12] MEDS ORDERED: GUAI600T47 PO (12:58)
--- NOTE | 2020-09-12 12:59 | SNU/HH DC ---
DISCHARGE ORDERS DISCHARGE INFORMATION: CONDITION ON DISCHARGE: Guarded CODE STATUS: Code Status: DNR/DNI RETIREMENT: SNF STAY <30 DAYS: Yes HOSPICE: HOSPICE: No HOSPICE EVAL & TREAT: No LTAC: ADMIT TO LTAC: No POST DISCHARGE ORDERS: ACTIVITY ORDERS: Activity as tolerated DIET AFTER DISCHARGE: Cardiac CHECKS AFTER DISCHARGE: CHECKS AFTER DISCHARGE: Check blood press - daily FOLLOW-UP: PHYSICIAN FOLLOW-UP: PCP AT SNF 2 DAYS TREATMENT/EQUIPMENT ORDERS: Physical Therapy For: Evalulation/Treatment Occupational Therapy For: Evaluation/Treatment Speech Language Pathology For: Evaluation/Treatment DISCHARGE MEDICATIONS: Home Meds Active Scripts Dexamethasone (Decadron) 4 Mg Tablet, 4 MG PO DAILYWBKFT for COVID 19 for 7 Days, #7 TAB Prov:LOUIE OH MD 09/12/20 Lactobacillus Rhamnosus Gg (CULTURELLE) 1 Each Cap.sprink, 1 CAP PO BID for SUPPLEMENT for 30 Days, #60 CAP Prov:LOUIE OH MD 09/12/20 Guaifenesin (MUCINEX) 600 Mg Tablet.er, 600 MG PO BID for COUGH for 10 Days, #20 TAB.SR Prov:LOUIE OH MD 09/12/20 Mirtazapine (MIRTAZAPINE) 15 Mg Tablet, 15 MG PO QHS for SLEEP for 30 Days, #30 TAB Prov:LOUIE OH MD 09/12/20 Acetaminophen (TYLENOL) 325 Mg Tablet, 650 MG PO PRN Q6HRS PRN for MILD PAIN / TEMP > 100.3'F for 30 Days, #60 TAB Prov:LOUIE OH MD 09/12/20 Ipratropium/Albuterol Sulfate (COMBIVENT RESPIMAT INHAL) 4 Gm Aer.w.adap, 1 PUFF INH RTQID for COPD for 14 Days, #1 INH Prov:LOUIE OH MD 09/12/20 Nystatin (NYSTATIN) 100,000 Unit/1 Ml Oral.susp, 5 ML SWSW [id number] for THRUSH for 10 Days, #240 MISC Prov:LOUIE OH MD 09/12/20 Doxycycline Hyclate (DOXYCYCLINE HYCLATE) 100 Mg Tablet, 100 MG PO BID for PNEUMONIA for 7 Days, #14 TAB Prov:LOUIE OH MD 09/12/20 Reported Medications Rivaroxaban (XARELTO) 15 Mg Tablet, 1 TAB PO DAILY for blood thinner for 30 Days, #30 TAB 0 Refills 09/05/20 Psyllium Husk (METAMUCIL) 0.52 Gm Capsule, 1 CAP PO DAILY for constipation for 30 Days, #30 CAP 0 Refills 09/05/20 [place]-3S/Dha/Epa/Fish Oil (FISH OIL DR 1,000 MG SOFTGEL) 1 Each Capsule.dr, 1 CAP PO DAILY for cardiac health for 30 Days, #30 CAP 0 Refills 09/05/20 Nitrofurantoin Macrocrystal (MACRODANTIN) 50 Mg Capsule, 1 CAP PO TWICE WEEKLY for recurring uti's for 30 Days, CAP 0 Refills 09/05/20 Multivitamin (MULTI VITAMIN DAILY) 1 Each Tablet, 1 TAB PO DAILY for supplement for 30 Days, #30 TAB 0 Refills 09/05/20 Irbesartan (IRBESARTAN) 300 Mg Tablet, 300 MG PO DAILY for htn, TAB 09/05/20 Estradiol (ESTRACE) 42.5 Gm Cream.appl, 1 GM VG TWICE WEEKLY for UTI's, #1 EACH 3 Refills 09/05/20 Calcium Citrate/Vitamin D2 (DAPHNIE-CITRATE PLUS VITAMIN D TAB) 1 Each Tablet, 1 TAB PO BID for supplement for 5 Days, #60 TAB 0 Refills 09/05/20 Alendronate Sodium (ALENDRONATE SODIUM) 70 Mg Tablet, 1 TAB PO WEEKLY for osteoporosis, #4 TAB 3 Refills 09/05/20 Levothyroxine Sodium (SYNTHROID) 125 Mcg Tablet, 125 MCG PO DAILYAC for hypoth yroid 09/05/20 Quetiapine Fumarate (QUETIAPINE FUMARATE) 50 Mg Tablet, 50 MG PO QHS for sleep 09/05/20 Spironolactone (SPIRONOLACTONE) 25 Mg Tablet, 12.5 MG PO DAILY for htn 09/05/20 Bupropion Hcl (BUPROPION HCL SR) 150 Mg Tablet.er, 300 MG PO DAILY for depression 09/05/20 Alprazolam (ALPRAZOLAM) 1 Mg Tablet, 1 MG PO TID for anxiety 09/05/20 Carvedilol (Carvedilol) 6.25 Mg Tablet, 3.125 MG PO BIDWMEALS for htn 09/05/20 Atorvastatin Calcium (ATORVASTATIN CALCIUM) 20 Mg Tablet, 20 MG PO QHS for HLD 09/05/20 LOUIE OH MD Sep 12, 2020 12:59
[2020-09-12 15:00] VITALS: BP_SYST 113; BP_SYST 221; BP_DIAS 169; BP_DIAS 56
[2020-09-12 19:00] VITALS: BP 121/66
[2020-09-12] MEDS: MIRTAZAPINE 15 MG TABLET PO SCH (21:06)
[2020-09-12] MEDS: ZOLPIDEM 5 MG TABLET. PO PRN (21:06)
[2020-09-12] MEDS: ACETAMINOPHEN 325 MG TABLET. PO PRN (21:06)
[2020-09-12] MEDS: ATORVASTATIN CALCIUM 20 MG TABLET PO SCH (21:06)
[2020-09-12] MEDS: QUEtiapine 25 MG TABLET. PO SCH (21:06)
[2020-09-12 22:53] VITALS: BP 125/72
[2020-09-13 03:00] VITALS: BP 120/63
[2020-09-13] MEDS: LEVOTHYROXINE 125 MCG TABLET PO SCH (05:42)
[2020-09-13 07:00] VITALS: BP 126/66
[2020-09-13] MEDS: IPRATROPIUM/ALBUTEROL 20/100mcg/INH INHALER. INH SCH ×2 (07:53→11:48)
[2020-09-13] MEDS: CALCIUM CARB/VIT D3 500/200 TABLET. PO SCH (07:54)
[2020-09-13] MEDS: DEXAMETHASONE 4 MG TABLET PO SCH (07:54)
[2020-09-13] MEDS: ALPRAZolam 0.5 MG TABLET PO PRN ×2 (07:55→12:44)
[2020-09-13] MEDS: CARVEDILOL 3.125 MG TABLET. PO SCH (07:55)
--- NOTE | 2020-09-13 08:35 | PDOC ---
PULMONARY PROGRESS NOTES DATE: 09/13/20 TIME: 08:35 Subjective PT. is on 3 liters N/C no increased SOB or cough afebrile Vitals Vital Signs Date Time Temp Pulse Resp B/P (MAP) Pulse Ox O2 Delivery O2 Flow Rate FiO2 09/13/20 08:03 Nasal Cannula 4.0 09/13/20 07:55 100 126/66 09/13/20 07:00 96.8 19 94 96.8 ROS: No Nausea, No Chest Pain, No Abdominal Pain, No Increase Cough General: Alert Lungs: Clear Cardiovascular: S1 Abdomen: Soft Neuro Exam: Alert Extremities: No Edema Skin: Warm Labs Laboratory Tests Test 09/11/20 09:10 09/11/20 12:10 09/12/20 08:05 White Blood Count 12.2 x10^3/uL (4.0-11.0) Red Blood Count 3.58 x10^6/uL (3.50-5.40) Hemoglobin 11.7 g/dL (12.0-15.5) Hematocrit 34.8 % (36.0-47.0) Mean Corpuscular Volume 97 fL (79-100) Mean Corpuscular Hemoglobin 33 pg (25-35) Mean Corpuscular Hemoglobin Concent 34 g/dL (31-37) Red Cell Distribution Width 14.1 % (11.5-14.5) Platelet Count 453 x10^3/uL (140-400) Neutrophils (%) (Auto) 87 % (31-73) Lymphocytes (%) (Auto) 7 % (24-48) Monocytes (%) (Auto) 6 % (0-9) Eosinophils (%) (Auto) 0 % (0-3) Basophils (%) (Auto) 0 % (0-3) Neutrophils # (Auto) 10.6 x10^3/uL (1.8-7.7) Lymphocytes # (Auto) 0.8 x10^3/uL (1.0-4.8) Monocytes # (Auto) 0.7 x10^3/uL (0.0-1.1) Eosinophils # (Auto) 0.0 x10^3/uL (0.0-0.7) Basophils # (Auto) 0.0 x10^3/uL (0.0-0.2) Sodium Level 138 mmol/L (136-145) 142 mmol/L (136-145) Potassium Level 4.5 mmol/L (3.5-5.1) 4.9 mmol/L (3.5-5.1) Chloride Level 102 mmol/L (98-107) 106 mmol/L (98-107) Carbon Dioxide Level 27 mmol/L (21-32) 26 mmol/L (21-32) Anion Gap 9 (6-14) 10 (6-14) Blood Urea Nitrogen 54 mg/dL (7-20) 49 mg/dL (7-20) Creatinine 1.7 mg/dL (0.6-1.0) 1.5 mg/dL (0.6-1.0) Estimated GFR (Cockcroft-Gault) 29.1 33.6 BUN/Creatinine Ratio 32 (6-20) Glucose Level 93 mg/dL (70-99) 88 mg/dL (70-99) Calcium Level 9.5 mg/dL (8.5-10.1) 9.2 mg/dL (8.5-10.1) Total Bilirubin 0.7 mg/dL (0.2-1.0) Aspartate Amino Transf (AST/SGOT) 20 U/L (15-37) Alanine Aminotransferase (ALT/SGPT) 28 U/L (14-59) Alkaline Phosphatase 78 U/L (46-116) Total Protein 6.3 g/dL (6.4-8.2) Albumin 2.7 g/dL (3.4-5.0) 2.6 g/dL (3.4-5.0) Albumin/Globulin Ratio 0.8 (1.0-1.7) Coronavirus (PCR) Detected (Not Detected) Phosphorus Level 3.7 mg/dL (2.6-4.7) Medications Active Scripts Medications Dose Route/Sig Max Daily Dose Days Date Category Xarelto (Rivaroxaban) 15 Mg Tablet 1 Tab PO DAILY 09/05/20 Reported Metamucil (Psyllium Husk) 0.52 Gm Capsule 1 Cap PO DAILY 09/05/[address] 1,000 Mg Softgel ([place]-3S/Dha/Epa/Fish Oil) 1 Each Capsule.dr 1 Cap PO DAILY 09/05/20 Reported Macrodantin (Nitrofurantoin Macrocrystal) 50 Mg Capsule 1 Cap PO TWICE WEEKLY 30 09/05/20 Reported Multi Vitamin Daily (Multivitamin) 1 Each Tablet 1 Tab PO DAILY 30 09/05/20 Reported Irbesartan 300 Mg Tablet 300 Mg PO DAILY 09/05/20 Reported Estrace (Estradiol) 42.5 Gm Cream.appl 1 Gm VG TWICE WEEKLY 09/05/20 Reported Mohan-Citrate Plus Vitamin D Tab (Calcium Citrate/Vitamin D2) 1 Each Tablet 1 Tab PO BID 5 09/05/20 Reported Alendronate Sodium 70 Mg Tablet 1 Tab PO WEEKLY 09/05/20 Reported Synthroid (Levothyroxine Sodium) 125 Mcg Tablet 125 Mcg PO DAILYAC 09/05/20 Reported Quetiapine Fumarate 50 Mg Tablet 50 Mg PO QHS 09/05/20 Reported Spironolactone 25 Mg Tablet 12.5 Mg PO DAILY 09/05/20 Reported Bupropion Hcl Sr (Bupropion Hcl) 150 Mg Tablet.er 300 Mg PO DAILY 09/05/20 Reported Alprazolam 1 Mg Tablet 1 Mg PO TID 09/05/20 Reported Carvedilol 6.25 Mg Tablet 3.125 Mg PO BIDWMEALS 09/05/20 Reported Atorvastatin Calcium 20 Mg Tablet 20 Mg PO QHS 09/05/[address] IMPRESSION: 1. Positive treatment response with marked interval decrease in size of the previously hypermetabolic mass in the right lower lobe, with only minimal residual scarlike mass measuring 13 x 5 mm. 2. Severe panlobular emphysema with interval development of parenchymal scarring and groundglass attenuation that could reflect sequelae of infection or drug side effect. Impression . IMPRESSION: 1. Acute hypoxic respiratory failure in a patient with severe underlying chronic obstructive pulmonary disease. The respiratory failure is contributed by development of pneumonia, likely gram-negative, for which she has been treated since 08/30/2020. 2. Abnormal chest x-ray with bilateral infiltrates. Overall, infiltrates have been improving on the right lung, but more prominent on the left base and would need to be empirically treated with antibiotics. 3. Previous PET positive spiculated nodule in the right lower lobe, which was about 2.5 cm. She declined any invasive treatment and was referred to [facility] and did empiric radiation, which ended in December. She has not had any followup scans since then. Some of the radiographic changes could be related to some radiation-induced scarring as well. 4. History of chronic anticoagulation. 5. FARRAH Plan . RECOMMENDATIONS: Continue Supplemental oxygen baseline 2 liters N/C, now on 3 liters N/C Continue ABX, on DOXY Continue steroids for covid-19 infection, will need full 10 day course, started on 09/06/20- can D/C on 09/16/20 Completed full course of remdesivir CT chest pending --- reviewed Right Mass is reduced in size Monitor renal function Social work for D/C planning, planned to go to SNF VS. rehab DVT/GI PPX D/W RN Pt. is DNR Ok to D/C from our standpoint LELA FLORES MD Sep 13, 2020 08:35
[2020-09-13] MEDS: OMEGA-3 FATTY ACIDS/FISH OIL 1,000 MG CAPSULE. PO SCH (08:41)
[2020-09-13] MEDS: NITROFURANTOIN MONOHYD/M-CRYST 100 MG CAPSULE. PO SCH (08:41)
[2020-09-13] MEDS: RIVAROXABAN 15 MG TABLET. PO SCH (08:41)
[2020-09-13] MEDS: DOXYCYCLINE HYCLATE 100 MG TABLET PO SCH (08:41)
[2020-09-13] MEDS: SPIRONOLACTONE 25 MG TABLET PO SCH (08:41)
[2020-09-13] MEDS: MULTIVITAMIN with MINERAL TABLET. PO SCH (08:41)
[2020-09-13] MEDS: buPROPion SR 150 MG TABLET.SA PO SCH (08:41)
[2020-09-13] MEDS: LACTOBACILLUS RHAMNOSUS GG 1 CAPSULE. PO SCH (08:41)
[2020-09-13] MEDS: PSYLLIUM HUSK (SUGAR FREE) 1 PKT PACKET PO SCH (08:42)
[2020-09-13] MEDS: NYSTATIN 100,000 UNITS/ML 5 ML ORAL.SUSP. SWSW SCH ×2 (08:42→13:00)
[2020-09-13] MEDS: LOSARTAN POTASSIUM 50 MG TABLET. PO SCH (08:42)
[2020-09-13] MEDS: ACETAMINOPHEN 325 MG TABLET. PO PRN (09:44)
--- NOTE | 2020-09-13 10:11 | PDOC ---
PROGRESS NOTES Date of Service: DATE: 09/13/20 TIME: 10:10 Chief Complaint Chief Complaint DISCHARGE DX Acute hypoxic respiratory failure - due to COVID 19 with secondary bacterial pneumonia as well. Cont antibiotics, steroids, wean O2 as tolerated COVID 19 with pneumonia -continue steroids and remdesivir. Acute hyponatremia - resolving Pneumonia - likely gram negative with structural lung disease. Will cont antibiotics Diarrhea - likely COVID related. infectious w/u negative Sepsis - from COVID 19, will monitor COPD - moderate-severe. Will cont inhalers MDI with steroids, wean O2 as tolerated., REMAINS 5 LITERS NC O2 PLAN FEN - General diet PPX - lovenox DNR/DNI Dispo - inpatient Continue ABX, on DOXY Continue steroids for covid-19 infection, will need full 10 day course, started on 09/06/20- can D/C on 09/16/20 Completed full course of remdesivir CT chest pending --- reviewed Right Mass is reduced in size Monitor renal function Social work for D/C planning, planned to go to SNF DVT/GI PPX D/C PLANNING 37 MIN History of Present Illness History of Present Illness Ms Hamm is a 79-year-old female w/ PMHx Anxiety, Arthritis, CHF, COPD, High Cholesterol, Hypertension, rheumatic fever, and GLORY on 2L NCO2 nightly who was transferred from [place] for worsening O2 status under treatment for COVID 19. She initially presented for weakness, fatigue, shortness of breath, and decreased p.o. intake. She has been having diarrhea for about 6 weeks and was hospitalized for the same prior. Patient was also hypoxic on room air satting 84%. Patient has a history of COPD and uses oxygen at night but not during the day. She was started on steroids by her primary care physician and had 1 dose prior to admission. Patient states she has had a productive cough denies any nausea and vomiting. She was exposed to Covid by her daughter who came over for . Her daughter and had a test performed prior to the holiday, got the positive results after being at her mother's for the holiday. She denies any loss of taste or smell but says she lives alone and because she has not felt well is lacking motivation to get out and make food. States there is no blood i n her stools no tarry looking stools. Chest radiograph with bilateral pneumonia For her diarrhea Michell's she had a C. difficile and Salmonella Shigella test negative negative for parasites. Her test for COVID-19 on 1230 came back positive and she was initiated on remdesivir on 09/04/2020. She also had an ABG at that time and while on a 40% FiO2 pH 74 PaCO2 42 PaO2 71. Repeat chest x-ray on 09/04/2020 showed improvement in her right basilar infiltrate but left infiltrate as well and emphysema. Labs prior to discharge to [facility] WBC 1.3, Hb 8.6, platelets 231, NA 134, K4.5, BUN 19, CR 1.1, glucose 126, calcium 6.5. EKG was Sinus rhythm, wide complex with left axis deviation, intraventricular block. No ST elevation or depression. 09/07: Afebrile overnight. 10 L nasal cannula O2. She has had difficulty sleeping. Still feeling weak and very little appetite. Still short of breath with cough that is productive today. No chest pain.' 09/08: Afebrile overnight. Out of 8 L nasal cannula O2. Slept a little better but still with difficulty sleeping. Appetite is still low. Still short of breath cough is still productive. No chest pain. No diarrhea. Afebrile. On 6 liters nasal cannula O2. Slept significantly better and appetite is increased. Of breath with cough. Still feeling very weak. No chest pain no diarrhea. Plan: 6 min walk to modify her home O2 F/u therapy recs home health vs SNF D/c in next 24-48 hours Vitals Vitals Vital Signs Date Time Temp Pulse Resp B/P (MAP) Pulse Ox O2 Delivery O2 Flow Rate FiO2 09/13/20 08:42 100 126/66 09/13/20 08:03 Nasal Cannula 4.0 09/13/20 07:00 96.8 19 94 96.8 Physical Exam General: Alert, Oriented X3, Cooperative, No acute distress Heart: Regular rate Lungs: Clear Abdomen: Normal bowel sounds, Soft, No tenderness, No hepatosplenomegaly, No masses Extremities: No clubbing, No cyanosis, No edema, Normal pulses, No tenderness/swelling Skin: No rashes, No breakdown, No significant lesion Comment Review of Relevant I have reviewed the following items eric (where applicable) has been applied. Labs Laboratory Tests Test 09/11/20 12:10 09/12/20 08:05 Coronavirus (PCR) Detected (Not Detected) Sodium Level 142 mmol/L (136-145) Potassium Level 4.9 mmol/L (3.5-5.1) Chloride Level 106 mmol/L (98-107) Carbon Dioxide Level 26 mmol/L (21-32) Anion Gap 10 (6-14) Blood Urea Nitrogen 49 mg/dL (7-20) Creatinine 1.5 mg/dL (0.6-1.0) Estimated GFR (Cockcroft-Gault) 33.6 Glucose Level 88 mg/dL (70-99) Calcium Level 9.2 mg/dL (8.5-10.1) Phosphorus Level 3.7 mg/dL (2.6-4.7) Albumin 2.6 g/dL (3.4-5.0) Medications Current Medications Alprazolam (Xanax) 1 mg TID PO Last administered on 09/05/20at 22:26; Start 09/05/20 at 21:00; Stop 09/06/20 at 08:14; Status DC Atorvastatin Calcium (Lipitor) 20 mg QHS PO Last administered on 09/12/20at 21:06; Start 09/05/20 at 21:00 Bupropion HCl (Wellbutrin Sr) 300 mg DAILY PO Last administered on 09/13/20at 08:41; Start 09/06/20 at 09:00 Carvedilol (Coreg) 3.125 mg BIDWMEALS PO Last administered on 09/13/20at 07:55; Start 09/06/20 at 08:00 Estradiol (Estrace) 1 angelica QMTH VG Last administered on 09/10/20 18:19; Start 09/06/20 at 16:00 Levothyroxine Sodium (Synthroid) 125 mcg DAILY06 PO Last administered on 09/13/20 05:42; Start 09/06/20 at 06:00 Rivaroxaban (Xarelto) 15 mg DAILY PO Last administered on 09/13/20 08:41; Start 09/06/20 at 09:00 Spironolactone (Aldactone) 12.5 mg DAILY PO Last administered on 09/13/20 08:41; Start 09/06/20 at 09:00 Non-Formulary Medication (Alendronate Sodium ) 1 tab WEEKLY PO ; Start 09/12/20 at 09:00; Status UNV Calcium/Vitamin D (Oscal D 500mg/ 200uts) 1 tab BIDWMEALS PO Last administered on 09/13/20 07:54; Start 09/06/20 at 08:00 Losartan Potassium (Cozaar) 100 mg DAILY PO Last administered on 09/13/20 08:42; Start 09/06/20 at 09:00 Multivitamins (Thera M Plus) 1 tab DAILY PO Last administered on 09/13/20 08:41; Start 09/06/20 at 09:00 Nitrofurantoin Macrocrystals (Macrobid) 100 mg SuTh PO Last administered on 09/13/20 08:41; Start 09/06/20 at 09:00 Fish Oil (Fish Oil) 1,000 mg DAILY PO Last administered on 09/13/20 08:41; Start 09/06/20 at 09:00 Psyllium Hydrophilic Mucilloid (Metamucil Fiber Packet) 1 pkt DAILY PO Last administered on 09/10/20at 08:45; Start 09/06/20 at 09:00 Quetiapine Fumarate (SEROquel) 50 mg QHS PO Last administered on 09/12/20 21:06; Start 09/05/20 at 21:00 Dexamethasone Sodium Phosphate (Decadron) 4 mg Q6HRS IVP Last administered on 09/09/20at 11:33; Start 09/06/20 at 00:00; Stop 09/09/20 at 13:30; Status DC Albuterol/ Ipratropium (Combivent Respimat 20-100 Mcg) 1 puff RTQID INH Last administered on 09/13/20at 07:53; Start 09/06/20 at 08:00 Lactobacillus Rhamnosus (Culturelle) 1 cap BID PO Last administered on 09/13/20 08:41; Start 09/05/20 at 21:30 Loperamide HCl (Imodium) 2 mg PRN Q15MIN PRN PO DIARRHEA Last administered on 09/08/20 20:21; Start 09/05/20 at 21:15 Guaifenesin (Mucinex) 600 mg BID PO Last administered on 09/13/20 08:41; Start 09/05/20 at 21:30 Info (Anti-Coagulation Monitoring By Pharmacy) 1 each PRN DAILY PRN MC SEE COMMENTS Last administered on 09/11/20at 15:48; Start 09/05/20 at 21:30 Azithromycin 500 mg/Sodium Chloride 250 ml @ 250 mls/hr Q24H IV Last administered on 09/09/20at 12:37; Start 09/06/20 at 13:00; Stop 09/09/20 at 13:30; Status DC Enoxaparin Sodium (Lovenox 40mg Syringe) 40 mg Q24H SQ ; Start 09/06/20 at 12:00; Status UNV Ceftriaxone Sodium (Rocephin) 1 gm Q24H IVP Last administered on 09/09/20at 11:34; Start 09/06/20 at 12:00; Stop 09/09/20 at 13:30; Status DC Remdesivir 100 mg/ Sodium Chloride 230 ml @ 460 mls/hr Q24H IV Last administered on 09/08/20at 09:55; Start 09/06/20 at 09:00; Stop 09/08/20 at 09:29; Status DC Acetaminophen (Tylenol) 650 mg PRN Q6HRS PRN PO MILD PAIN / TEMP > 100.3'F Last administered on 09/13/20at 09:44; Start 09/06/20 at 00:45 Alprazolam (Xanax) 0.5 mg PRN TID PRN PO anxiety Last administered on 09/13/20at 07:55; Start 09/06/20 at 08:30 Amino Acids/ Glycerin/ Electrolytes 1,000 ml @ 80 mls/hr [id number] IV Last administered on 09/09/20at 00:14; Start 09/06/20 at 12:15; Stop 09/09/20 at 13:30; Status DC Zolpidem Tartrate (Ambien) 5 mg PRN QHS PRN PO INSOMNIA Last administered on 09/12/20at 21:06; Start 09/07/20 at 21:00 Mirtazapine (Remeron) 15 mg QHS PO Last administered on 09/12/20at 21:06; Start 09/08/20 at 21:00 Dexamethasone (Decadron) 4 mg [id number] PO Last administered on 09/13/20at 07:54; Start 09/10/20 at 08:00; Stop 09/20/20 at 07:59 Doxycycline Hyclate (Vibra-Tab) 100 mg BID PO Last administered on 09/13/20at 08:41; Start 09/09/20 at 21:00; Stop 09/14/20 at 21:01 Nystatin (Nystatin Oral Susp) 5 ml [id number] [id number] Last administered on 09/13/20at 08:42; Start 09/10/20 at 13:00 Sodium Chloride 1,000 ml @ 100 mls/hr 1X ONCE IV Last administered on 09/11/20at 10:29; Start 09/11/20 at 09:45; Stop 09/11/20 at 19:44; Status DC Active Scripts Active Decadron (Dexamethasone) 4 Mg Tablet 4 Mg PO [id number] 7 Days Culturelle (Lactobacillus Rhamnosus Gg) 1 Each Cap.sprink 1 Cap PO BID 30 Days Mucinex (Guaifenesin) 600 Mg Tablet.er 600 Mg PO BID 10 Days Mirtazapine 15 Mg Tablet 15 Mg PO QHS 30 Days Tylenol (Acetaminophen) 325 Mg Tablet 650 Mg PO PRN Q6HRS PRN 30 Days Combivent Respimat Inhal (Ipratropium/Albuterol Sulfate) 4 Gm Aer.w.adap 1 Puff INH RTQID 14 Days Nystatin 100,000 Unit/1 Ml Oral.susp 5 Ml SWSW [id number] 10 Days Doxycycline Hyclate 100 Mg Tablet 100 Mg PO BID 7 Days Reported Xarelto (Rivaroxaban) 15 Mg Tablet 1 Tab PO DAILY 30 Days Metamucil (Psyllium Husk) 0.52 Gm Capsule 1 Cap PO DAILY [address] 1,000 Mg Softgel ([place]-3S/Dha/Epa/Fish Oil) 1 Each Capsule.dr 1 Cap PO DAILY 30 Days Macrodantin (Nitrofurantoin Macrocrystal) 50 Mg Capsule 1 Cap PO TWICE WEEKLY 30 Days Multi Vitamin Daily (Multivitamin) 1 Each Tablet 1 Tab PO DAILY 30 Days Irbesartan 300 Mg Tablet 300 Mg PO DAILY Estrace (Estradiol) 42.5 Gm Cream.appl 1 Gm VG TWICE WEEKLY Mohan-Citrate Plus Vitamin D Tab (Calcium Citrate/Vitamin D2) 1 Each Tablet 1 Tab PO BID 5 Days Alendronate Sodium 70 Mg Tablet 1 Tab PO WEEKLY Synthroid (Levothyroxine Sodium) 125 Mcg Tablet 125 Mcg PO DAILYAC Quetiapine Fumarate 50 Mg Tablet 50 Mg PO QHS Spironolactone 25 Mg Tablet 12.5 Mg PO DAILY Bupropion Hcl Sr (Bupropion Hcl) 150 Mg Tablet.er 300 Mg PO DAILY Alprazolam 1 Mg Tablet 1 Mg PO TID Carvedilol 6.25 Mg Tablet 3.125 Mg PO BIDWMEALS Atorvastatin Calcium 20 Mg Tablet 20 Mg PO QHS Vitals/I & O Vital Sign - Last 24 Hours 09/12/20 09/12/20 09/12/20 09/12/20 10:57 15:00 16:53 19:00 Temp 97.2 97.7 97.7 97.2 97.7 97.7 Pulse 94 111 111 70 Resp 18 18 18 B/P (MAP) 132/63 (86) 113/56 (75) 113/56 121/66 (84) Pulse Ox 94 91 94 O2 Delivery Nasal Cannula Nasal Cannula Nasal Cannula O2 Flow Rate 3.0 3.0 3.0 09/12/20 09/12/20 09/13/20 09/13/20 20:15 22:53 03:00 07:00 Temp 97.6 97.6 96.8 97.6 97.6 96.8 Pulse 108 88 100 Resp 18 16 19 B/P (MAP) 125/72 (89) 120/63 (82) 126/66 (86) Pulse Ox 93 96 94 O2 Delivery Nasal Cannula Nasal Cannula Nasal Cannula Nasal Cannula O2 Flow Rate 4.0 3.0 3.0 2.0 09/13/20 09/13/20 09/13/20 07:55 08:03 08:42 Pulse 100 100 B/P (MAP) 126/66 126/66 O2 Delivery Nasal Cannula O2 Flow Rate 4.0 Intake and Output 09/12/20 09/12/20 09/13/20 15:00 23:00 07:00 Intake Total 300 ml 240 ml 240 ml Output Total 300 ml Balance 0 ml 240 ml 240 ml Justicifation of Admission Dx: Justifications for Admission: Justification of Admission Dx: Yes Comminuty Aquired Pneumonia: Hypoxemia LOUIE OH MD Sep 13, 2020 10:11
[2020-09-13 11:00] VITALS: BP 122/74
--- NOTE | 2020-09-13 12:37 | NUR ---
This RN attempted to call report to [facility] at [phone]. Staff member stated she would have the nurse call me back, phone number left for call back. Addendum: 09/13/20 at 1353 by SCOOBY MEHTA RN Report called to LATIA Ryder of [facility] at [phone].
--- NOTE | 2020-09-13 13:40 | NUR ---
Pt left unit at approx 1330 by wheelchair via transportation. Pt's IV removed without complication, VSS. Discharge paperwork sent with pt at time of discharge.
== END 2020-09-13 13:53 | DRG 871 ==
LOC: 6 SOUTH 18:00
PROVIDERS: ADMIT Family Medicine; ATTEND Family Medicine
PROC: XW033E5 Introduction of Remdesivir Anti-infective into Peripheral Vein, Percutaneous Approach, New Technology Group 5 (ICD-10-PCS; principal; 2020-09-05)
DX: A41.89 Other specified sepsis (principal); U07.1 COVID-19; J96.01 Acute respiratory failure with hypoxia; J12.82 Pneumonia due to coronavirus disease 2019; E87.1 Hypo-osmolality and hyponatremia; K52.1 Toxic gastroenteritis and colitis; N17.9 Acute kidney failure, unspecified; E78.00 Pure hypercholesterolemia, unspecified; E78.5 Hyperlipidemia, unspecified; I11.0 Hypertensive heart disease with heart failure; I45.4 Nonspecific intraventricular block; I50.9 Heart failure, unspecified; J43.1 Panlobular emphysema; T36.95XA Adverse effect of unspecified systemic antibiotic, initial encounter; Z66 Do not resuscitate; Z79.01 Long term (current) use of anticoagulants; Z82.49 Family history of ischemic heart disease and other diseases of the circulatory system; Z85.118 Personal history of other malignant neoplasm of bronchus and lung; Z87.891 Personal history of nicotine dependence; F41.9 Anxiety disorder, unspecified; M19.90 Unspecified osteoarthritis, unspecified site; Z88.8 Allergy status to other drugs, medicaments and biological substances; Z68.35 Body mass index [BMI] 35.0-35.9, adult; G47.33 Obstructive sleep apnea (adult) (pediatric)
CPT/HCPCS: 36415; 71045; 71250; 80053; 80069; 85007; 85018; 85025; 85379; J0456; J0696; J1100; J3490; J7030; J7050; U0003; 97116-GP; 97530-GO; 97530-GP; 97535-GO; G0378